=== PATIENT | female | born 1945 | race Caucasian/White ===

== ENCOUNTER → 2019-04-18 06:00 | Day surgery (SDC) | payer MEDICARE, OTHER, SELFPAY ==
--- NOTE | 2019-04-18 10:54 | XR_ITS ---
WS: [id number] Chest 2 views, 04/18/2019 Clinical Data: TOTAL HIP ARTHROPLASTY Comparison: None. Findings: No nodules, masses or effusions are seen. The heart is normal. The pulmonary vascularity is not increased. No pneumonia or pneumothorax is seen. The aortic arch and descending aorta are modera tely tortuous with minimal calcification. XR/XR chest 2V* [id number] Impression: Atherosclerosis.
--- NOTE | 2019-04-18 10:54 | ECG_ITS ---
Measurements Intervals [place] Rate: 67 P: 63 AK: 180 QRS: 58 QRSD: 89 T: 47 QT: 374 QTc: 395 SINUS RHYTHM No previous ECG available for comparison Electronically Signed On 04-18-2019 17:11:53 LASTER HAND by Malissa Torre M.D. [email or web address]
[2019-04-18 11:23] VITALS: BMI 32.4
--- NOTE | 2019-04-18 11:51 | ANES.PREANES ---
Pre-Anesthetic Assessment Pre-Anesthetic Assessment: Height/Weight: Height 1.65 m Weight 88.451 kg Proposed Procedure: Operation Date: 04/29/19 07:00 Proposed Procedures p Total Hip Arthroplasty(Left) - Juan Wheeler MD Social: Social History: No alcohol and No tobacco Exam: Pre-Anes Outpt Exam: alert, oriented x 3, clear to auscultation bilaterally and regular rate & rhythm Airway: Submandibular: WNL Cervical ROM: WNL MP: 2 Additional comments: teeth OK CV/HEM: CV/HEM: None reported : : None reported Hepatic: Hepatic: None reported GI: GI: None reported Metabolic: Metabolic: None reported Musc/skel: Musc/skel: OA/DJD Neuropsych: Neuropsych: None reported Anesthetic Plan: ASA status: II Anesthesia: Anesthesia Evaluation and General Risk of > 500 ml blood loss (7ml/kg in children): No PFSH Anesthesia PFSH: Medical History Hypertension (Acute) Surgical History H/O arthroscopy of right knee (Acute) H/O: (Acute) H/O: hysterectomy (Acute) History of bilateral carpal tunnel release (Acute) History of total right knee replacement (Acute) Data Anesthesia Cardiac Studies: No Data to Display
[2019-04-18 11:56] LABS: Basophils % 0.2 %; Eosinophils # 0.2 10^3/uL (0.0-0.8); Eosinophils % 1.9 %; Hematocrit 44.7 % (37.0-47.0); Hemoglobin 14.1 g/dL (11.5-15.3); Lymphocytes # 2.8 10^3/uL (0.8-4.8); Lymphocytes % 33.5 %; Mean Corpuscular HGB Conc 31.5 g/dL (30.0-36.0); Mean Corpuscular Hemoglobin 26.6 pg (28.0-34.0); Mean Corpuscular Volume 84.2 fL (81-99); Mean Platelet Volume 11.4 fL (7.4-10.4); Monocytes # 0.6 10^3/uL (0.2-0.9); Monocytes % 6.6 %; Neutrophils # 4.8 10^3/uL (1.8-7.7); Neutrophils % 57.1 %; Nucleated Red Blood Cells % 0 %; Platelet Count 177 10^3/cmm (130-400); Red Blood Count 5.31 10^6/uL (4.1-5.3); Red Cell Distribution Width 14.3 % (12.1-15.1); White Blood Count 8.3 10^3/uL (4.0-10.0)
[2019-04-18 11:58] LABS: Bilirubin Urine 1+ (NEGATIVE); Blood Urine Neg (Negative); Glucose Urine UA Norm (Normal); Ketones Urine 1+ (Negative); Leukocyte Esterase Urine 1+ (Negative); Nitrate Urine Positive (Negative); Protein Urine Trace (Negative); Urine Appearance Clear (CLEAR); Urine Color Yellow (Yellow); Urobilinogen Urine 1 mg/dL (Negative)
[2019-04-18 12:03] LABS: INR 0.96 (0.8-1.2)
[2019-04-18 12:08] LABS: Alanine Aminotransferase 20 U/L (0-33); Albumin Level 4.7 g/dL (3.5-5.2); Alkaline Phosphatase 105 IU/L (35-105); Anion Gap 16.8 (5-19); Aspartate Amino Transferase 21 U/L (0-32); Blood Urea Nitrogen 20 mg/dL (8-23); Calcium 10.1 mg/Dl (8.8-10.2); Carbon Dioxide 27 mmol/L (22-29); Chloride 99 mmol/L (98-107); Globulin 3.6 g/dL (1.3-4.6); Glucose 105 mg/dL (74-106); Potassium 3.8 mmol/L (3.5-5.1); Sodium 139 mmol/L (136-145); Total Bilirubin 0.5 mg/dL (0.15-1.2); Total Protein 8.3 g/dL (6.6-8.7)
[2019-04-18 12:15] LABS: Add Urine Culture? Yes; Bacteria Urine 2+; WBC Urine 40-55 /hpf (0-5)
== END ==
PROVIDERS: Family Provider Nurse Practitioner Family; Visit Provider Orthopaedic Surgery
DX: Z01.810 Encounter for preprocedural cardiovascular examination (principal); Z01.812 Encounter for preprocedural laboratory examination
CPT/HCPCS: 71046; 80053; 81001; 85025; 85610; 87077; 87086; 87186; 87641; 93005

== ENCOUNTER 2019-08-26 11:38 | Observation (INO) | payer MEDICARE, OTHER, SELFPAY ==
--- NOTE | 2019-08-20 10:53 | ANES.PREANE2 ---
Pre-Anesthetic Assessment Pre-Anesthetic Assessment: Height/Weight: Height 1.65 m Weight 86.183 kg Preop Diagnosis: Osteoarthritis left hip Proposed Procedure: Operation Date: 08/26/19 09:15 Proposed Procedures p Left Total Hip Arthroplasty, osteoarthritis of left hip 32505/M16.12(Left) - Juan Wheeler MD Social: Social History: No alcohol and No tobacco Exam: Pre-Anes Outpt Exam: alert, oriented x 3, clear to auscultation bilaterally and regular rate & rhythm Airway: Submandibular: WNL Cervical ROM: WNL MP: 2 History/ROS: No significant history except as noted CV/HEM: CV/HEM: HTN (white coat hypertension) : : None reported Hepatic: Hepatic: None reported Metabolic: Metabolic: None reported Musc/skel: Musc/skel: None reported Neuropsych: Neuropsych: None reported Anesthetic Plan: Anesthesia: General Risk of > 500 ml blood loss (7ml/kg in children): Yes, adequate IV access and fluids planned Data Anesthesia Cardiac Studies: No Data to Display
[2019-08-26] VITALS (21 sets, daily range): BP systolic 116–200; BP diastolic 64–95; PULSE 56–99; RESP 12–20; TEMP 36.3–36.9; O2SAT 92–100
--- NOTE | 2019-08-26 08:29 | P.ANESUD_ITS ---
Pre-Anesthetic Update Pre-Anesthetic Assessment: Date of Surgery/Procedure: 08/26/19 Preop Katie gnosis: Osteoarthritis left hip Proposed Procedure: Operation Date: 08/26/19 09:15 Proposed Procedures p Left Total Hip Arthroplasty, osteoarthritis of left hip 39601/M16.12(Left) - Juan Wheeler MD Any changes to Pre-Anesthetic Assessment?: No Last Intake: Intake Last Liquid Date 08/25/19 Last Liquid Time 21:00 Last Solid Date 08/25/19 Last Solid Time 21:00 Vitals: Temperature 98.4 F 08/26/19 08:15 Temperature Source Temporal Artery S can 08/26/19 08:15 Pulse Rate 70 08/26/19 08:15 Respiratory Rate 18 08/26/19 08:15 Blood Pressure 200/90 08/26/19 08:15 Blood Pressure Brenda n 126 08/26/19 08:15 Pulse Oximetry 98 08/26/19 08:15 Oxygen Delivery Me thod 08/26/19 08:15 Exam: Pre-Anes Outpt Exam: alert, oriented x 3, clear to auscultation bilaterally and regular rate & rhythm Cardiac Studies: No Data to Display
[2019-08-26] MEDS: sodium chloride 0.9% 1,000 ML 30 ML IV (08:55)
[2019-08-26 09:13] LABS: Basophils % 0.4 %; Eosinophils # 0.1 10^3/uL (0.0-0.8); Eosinophils % 1.7 %; Hematocrit 49.3 % (37.0-47.0); Hemoglobin 15.3 g/dL (11.5-15.3); Lymphocytes # 2.6 10^3/uL (0.8-4.8); Lymphocytes % 31.3 %; Mean Corpuscular Hemoglobin 26.4 pg (28.0-34.0); Mean Corpuscular Volume 85.1 fL (81-99); Mean Platelet Volume 12.1 fL (7.4-10.4); Monocytes # 0.5 10^3/uL (0.2-0.9); Neutrophils # 5.1 10^3/uL (1.8-7.7); Neutrophils % 60.1 %; Nucleated Red Blood Cells % 0 %; Platelet Count 202 10^3/cmm (130-400); Red Blood Count 5.79 10^6/uL (4.1-5.3); Red Cell Distribution Width 14.1 % (12.1-15.1); White Blood Count 8.4 10^3/uL (4.0-10.0)
--- NOTE | 2019-08-26 09:25 | W.PM.OPSUD ---
Surgery/Procedure H&P Update DATE OF PROCEDURE: August 26, 2019 DATE H&P PERFORMED: 08/20/19 H&P UPDATE INFORMATION: I have reviewed H&P completed within last 30 days PREOP DIAGNOSIS: Osteoarthritis left hip PLANNED PROCEDURE: Operation Date: 08/26/19 09:15 Proposed Procedures p Left Total Hip Arthroplasty, osteoarthritis of left hip 68688/M16.12(Left) - Juan Wheeler MD
[2019-08-26] MEDS: tranexamic acid 1,000 mg/10mL SDV 1000 MG IRRIGATION (10:54)
--- NOTE | 2019-08-26 11:14 | SUR.OPER ---
1110 - Attemped to update michaelle Ganga. unable to reach him on his cell phone at this time.
--- NOTE | 2019-08-26 11:41 | XR_ITS ---
WS: [id number] LEFT hip single view. HISTORY: LEFT hip arthroplasty. COMPARISON: 09/28/2018. Single view of the LEFT hip arthroplasty has been performed. Arthroplasty components are in good posi tion alignment. Postoperative changes in the soft tissues. XR/XR hip LT 1V wo/w pel [id number] IMPRESSION: Satisfactory LEFT hip arthroplasty radiograph.
--- NOTE | 2019-08-26 11:42 | PM.OP ---
Operative Report Date of procedure: August 26, 2019 Pre-op Diagnosis: Osteoarthritis left hip Post-op diagnosis: same Post-op Findings: Same Procedure Done: Left total hip Sanchez Implants: 1) Arturo 50 mm ADM acetabular shell 2) Size 7 [place] 132 degree neck angle SecureFit Max stem 3} 28 mm ceramic femoral head 4} Restorationa ADM X3 insert Pathology: none sent Surgeon: Juan Wheeler Anesthesia: General Estimated blood loss (mL): 200 Findings: Patient had sclerosis of her left femoral head and superior acetabulum Condition: stable Procedure: The patient was taken to the operating room and anesthesia provided by the anesthesia service. The patient was placed in the lateral position on a beanbag. A timeout was performed. The patient was draped in the usual fashion. A 15 cm long incision was made beginning just proximal to the greater trochanter and extending posteriorly to a point just distal to the trochanter on the posterior border of the trochanter. Dissection was carried down with electrocautery through the subcutaneous fat to the fascia enedina which was divided proximally and distally with curved scissors. The anterior two thirds of the gluteus medius and minimus were elevated off the hip with electrocautery. The capsule was divided in a H-like fashion. The hip was dislocated and a neck cut made just above the level of the lesser trochanter. Exposure of the acetabulum was facilitated with the acetabular retractors. Remnants of labrum and peripheral osteophytes were removed with electrocautery and a rongeur. A reamer 2 mm under the size the femoral head was utilized to ream medially to the base of the palm and are. Reaming was then increased in 1 mm intervals until a healthy rim a trabecular bone was encountered. A trial ADM cup was placed and its position marked with electrocautery In the acetabulum. A final was press-fit into place. Attention was then focused on the femur. Sequential reaming was done under power until cortical chatter was encountered. Broaching was then accomplished until a stable broach size was obtained. A trial reduction with the head and neck provided excellent stability. The wound was irrigated with saline and antibiotic solution. The final Arturo SecureFit Max stem was press-fit into place. The femoral head was placed and the hip was reduced. The hip was brought through range of motion and found to be free of impingement and stable. The anterior capsule was reapproximated with 1 Ethibond. The gluteus medius and minimus were repaired through bone with 5 Ethibond and reinforced with 1 Ethibond. The fascial enedina was closed with 1 Ethibond. The subcutaneous tissue closed with 2-0 Vicryl. The skin was closed with skin cheri. A sterile dressing was applied. The patient was taken to the recovery room in an abduction pillow in stable condition.
[2019-08-26] MEDS: morphine 4 mg/mL SDV 1 mL 2 MG IVP (11:45)
--- NOTE | 2019-08-26 12:37 | SUR.PHASEI ---
1216 X RAY DONE PT RESTING QUIETLY, REPORT CALLED TO FLOOR LT HIP DRESSING D/I FIRST ICE IN PLACE PT TO FLOOR PER BED 1225 PT TO ROOM ALERT TALKATIVE WITH FLOOR NURSE, PT NOW C/O OF HIP PAIN WORSENING, BP 165/76, HR 63, RESP 18 SATS ON 3LNC 99%
[2019-08-26] MEDS: CELEcoxib 200 mg Capsule PO (13:10)
[2019-08-26] MEDS: sodium chloride 0.9% 1,000 ML 100 ML IV ×2 (13:10→21:32)
[2019-08-26] MEDS: chlorhexidine gluconate 0.12% Btl 473 mL 30 ML MUCOUS MEM ×3 (13:11→21:32)
[2019-08-26] MEDS: oxyCODONE 5 mg IR Tab/Cap 10 MG PO ×2 (14:30→21:32)
[2019-08-26] MEDS: mupirocin oint 22 gm 1 APPLIC NASAL (17:51)
[2019-08-26] MEDS: sennosides-docusate Tablet 2 TAB PO (17:52)
[2019-08-26] MEDS: iron polysaccharide complex 150 mg Capsule PO (17:52)
[2019-08-26] MEDS: calcium carbonate 500 mg Chew Tablet 1000 MG PO (17:52)
[2019-08-27] VITALS (7 sets, daily range): BP systolic 120–167; BP diastolic 71–78; PULSE 70–81; RESP 18–20; TEMP 36.4–36.9; O2SAT 96–97
[2019-08-27] MEDS: CELEcoxib 200 mg Capsule PO ×2 (01:03→13:23)
[2019-08-27 05:12] LABS: Hematocrit 40.1 % (37.0-47.0)
[2019-08-27] MEDS: oxyCODONE 5 mg IR Tab/Cap 10 MG PO ×2 (05:23→13:23)
--- NOTE | 2019-08-27 07:49 | PM.DCS ---
Discharge Providers Date of Admission: 08/26/19 11:38 Date of Discharge: August 27, 2019 Attending Provider at Admission: Juan Wheeler MD Attending Provider at Discharge: Juan Wheeler MD Primary Care Provider: Latoya Jose Reason for Visit Reason for Visit: Reason For Visit: osteroarthritis of left hip Hospital Course Hospital Course: The patient was admitted for elective left total hip arthroplasty. Postoperatively she did well. Her pain was controlled with oral medications. She was mobilized with therapy and by the first postoperative day was independent with her walker and thought stable for discharge. Physical Exam Narrative: EXAM NARRATIVE: On 08/27/2019 her dressing was clean. She had minimal swelling in her left thigh. Urinary Catheter Management^: Leigh: Cath Placed During This Visit: yes, but has since been removed by the nurse Reason for Continuing Indwelling Catheter: Chronic Indwelling Urinary Catheter on Admission Urinary Catheter Date of Insertion: 08/26/19 Urinary Catheter Time of Insertion: 10:00 Date Urinary Catheter Removed: 08/27/19 Time Urinary Catheter Discontinued: 07:17 Discharge Data Data Completed and Pending: Completed Studies During Hospitalization Category Date Time Status XR hip LT 1V wo/[place] pel [id number] Routine Exams 08/26/19 11:41 Completed Labs from last 24 hours 08/27/19 08/26/19 08/26/19 04:25 08:25 08:25 WBC 8.4 RBC 5.79 H Hgb 15.3 Hct 40.1 49.3 H MCV 85.1 MCH 26.4 L MCHC 31.0 RDW 14.1 Plt Count 202 MPV 12.1 H Neut % (Auto) 60.1 Lymph % (Auto) 31.3 [place] % (Auto) 6.0 Eos % (Auto) 1.7 Baso % (Auto) 0.4 Neut # (Auto) 5.1 Lymph # (Auto) 2.6 [place] # (Auto) 0.5 Eos # (Auto) 0.1 Baso # (Auto) 0.0 Nucleated RBC % (a uto) 0 Nucleated RBCs # 0.0 Blood Type O Negative Rho(D) Type Negaive Antibody Screen Negative Vitals: Last Vital Signs Temp 97.8 F 08/27/19 04:00 Pulse 81 08/27/19 04:00 Resp 18 08/27/19 05:23 BP 167/77 08/27/19 04:00 Pulse Ox 97 08/27/19 05:23 Discharge Plan Discharge Patient Disposition: Home, Self-Care Condition: Stable Prescriptions: New oxycodone 5 mg Tablet 10 mg PO Q4H PRN (Reason: Severe Pain) Qty: 30 RF: 0 aspirin 325 mg Tablet,Delayed Release (Dr/Ec) 325 mg PO DAILY Qty: 30 RF: 0 celecoxib 200 mg Capsule 200 mg PO Q12H Qty: 15 RF: 0 Discontinued hydrocodone-acetaminophen 7.5-325 mg tablet 7.5 tab PO DAILY RF: 0 Discharge Orders: Discharge Order (Routine); Ordered 08/27/19 Ordered By: Juan Wheeler Other Ambulatory Orders: DME: Walker (Order) Location: None Selected Ordered By: Juan Wheeler Referrals: Juan Wheeler MD [Physician] - 09/10/19 3:45 pm Discharge Diet: Advance as tolerated Discharge Activity: Limit activity as instructed Activity Restrictions/Additional Instructions: May shower once incisions completely free of drainage. Discontinue right hip dressing in 24-48 hours. Replaced dressings as needed. Take Celebrex twice a day for the next 15 days for pain , discontinue other anti-inflammatories zehra oxycodone for breakthrough pain. Exercises per physical therapy. May discontinue abduction pillow. Keep 2 pillows between legs at night Discharge Attestations Time Spent in Discharge Care*: other Quality Metrics Clinical Quality Measures During this hospital stay, did patient experience: None Coding Level of Care Code Acute Medical Technician Assistant for Gladis Torres
[2019-08-27] MEDS: multivitamin therapeutic Tablet 1 TAB PO (08:51)
[2019-08-27] MEDS: calcium carbonate 500 mg Chew Tablet 1000 MG PO (08:51)
[2019-08-27] MEDS: aspirin 325 mg EC Tablet PO (08:52)
[2019-08-27] MEDS: sennosides-docusate Tablet 2 TAB PO (08:52)
[2019-08-27] MEDS: cholecalciferol (vitamin D3) 1,000 unit Tablet 1000 UNIT PO (08:52)
[2019-08-27] MEDS: iron polysaccharide complex 150 mg Capsule PO (08:52)
[2019-08-27] MEDS: chlorhexidine gluconate 0.12% Btl 473 mL 30 ML MUCOUS MEM (08:53)
[2019-08-27] MEDS: mupirocin oint 22 gm 1 APPLIC NASAL (08:54)
--- NOTE | 2019-08-27 11:49 | PC.CHAP ---
Pastoral Care Encounter/Spiritual Assessment Type of Contact [] Declined leather craftsman visit [] Patient/Family/Request visit [] Outpatient visit [] Follow-up visit [] Physician referral [] Code/Alert [x] Routine visit [] Staff referral [] Actively dying [] Patient sleeping [] Family support [] [] Out of room [] Palliative care [] [x] Receiving care in room [] Pre-surgical visit [] Trauma [] Long length of stay [] ICU visit [] Other: Relational/Emotional Strength [x] Patient feels connected with others/family/visitors/staff [] Distress [] Loneliness/isolation [] Abandonment Spirituality of Patient [x] Person of Hailee [] Attends Restorationist of their Hailee [x] Believes in Prayer [] Reads Bible or Confucianism materials [] There are Spiritual issues to be addressed Steep Tender Interventions [x] Prayer [x] Active listening [x] Non-anxious presence [x] Spiritual/emotional support [] Crisis/trauma care [x] Spiritual counseling [] Bereavement support [] Provided bereavement packet [] Provided Bible/devotional materials [] Provided toy/stuffed animal, coloring book to patient or family member [] Provided Communion [] Anointing/[place] [] Salvation [x] Completed spiritual assessment [] Other: Impact on Illness or Injury [] Angry [] Fearful [] Anxious [] Often cries [] Exhaustion [x] Unable to work [] Unable to attend yarsanism [] Unable to walk/stand [] Unable to read [] Unable to drive [] Unable to eat/drink [] Unable to sleep [] Unable to be with family [] Patient intubated [] Other: Summary osteroarthritis on lelt hip, good attitude, going home today Time spent with patient 10 mins
--- NOTE | 2019-08-27 13:24 | PC.NURSE ---
per Dr Wheeler, dressing is clean and dry. no need to change dressing at this time.
--- NOTE | 2019-08-27 13:46 | PC.SOCIAL ---
Patient received [employer] Recipient letter for the [employer] model for Medicare. Original signed and placed in the chart.
== END 2019-08-27 13:51 | disposition home or self-care (01) ==
LOC: MEDSURG 11:41 → OR 11:41
PROVIDERS: Admitting Provider Orthopaedic Surgery; Family Provider Nurse Practitioner Family; PCP Nurse Practitioner Family; Visit Provider Orthopaedic Surgery
PROC: (CPT 27130; principal; 2019-08-26 09:05)
DX: M16.12 Unilateral primary osteoarthritis, left hip (principal); I10 Essential (primary) hypertension
CPT/HCPCS: 27130; 12345; 36415; 51702; 73501; 85014; 85025; 86850; 86900; 96361; 96365; 96366; 97110; 97116; 97161; 97166; 97530; C1776; G0378; J0690; J1100; J1580; J2001; J2270; J2405; J2704; J2710; J3010; J3490; J7030

== ENCOUNTER 2019-09-19 06:00 | Outpatient (RCR) | payer MEDICARE, OTHER, SELFPAY | END 2019-10-15 23:59 | disposition home or self-care (01) | LOC: MPT 06:00 | PROVIDERS: PCP Nurse Practitioner Family; Visit Provider Orthopaedic Surgery | DX: Z47.1 Aftercare following joint replacement surgery (principal); Z96.642 Presence of left artificial hip joint | CPT/HCPCS: 97110; 97116; 97140; 97161; 97530 ==

== ENCOUNTER → 2019-10-08 14:34 | Outpatient (BNVA) | payer MEDICARE, OTHER, SELFPAY | PROVIDERS: PCP Nurse Practitioner Family; Visit Provider Orthopaedic Surgery | DX: Z96.642 Presence of left artificial hip joint (principal) | CPT/HCPCS: 73502 ==

== ENCOUNTER 2019-10-16 03:12 | Outpatient (RCR) | payer MEDICARE, OTHER, SELFPAY | END 2019-11-15 23:59 | disposition home or self-care (01) | LOC: MPT 03:12 | PROVIDERS: PCP Nurse Practitioner Family; Visit Provider Orthopaedic Surgery | DX: Z47.1 Aftercare following joint replacement surgery (principal); Z96.642 Presence of left artificial hip joint | CPT/HCPCS: 97110; 97116 ==

== ENCOUNTER → 2019-12-31 14:41 | Outpatient (BNVA) | payer MEDICARE, OTHER, SELFPAY | PROVIDERS: PCP Nurse Practitioner Family; Visit Provider Nurse Practitioner Family | DX: M25.571 Pain in right ankle and joints of right foot (principal); M19.071 Primary osteoarthritis, right ankle and foot | CPT/HCPCS: 73610 ==

== ENCOUNTER → 2020-02-24 10:06 | Outpatient (BNVA) | payer MEDICARE, OTHER, SELFPAY | PROVIDERS: PCP Nurse Practitioner Family; Referring Provider Nurse Practitioner Family; Visit Provider Nurse Practitioner Family | DX: M25.511 Pain in right shoulder (principal) | CPT/HCPCS: 73030 ==

== ENCOUNTER 2020-06-30 10:55 | Outpatient (CLI) | payer MEDICARE, OTHER, SELFPAY ==
--- NOTE | 2020-06-30 11:45 | MR_ITS ---
WS: [id number] MRI RIGHT SHOULDER NONCONTRAST TECHNIQUE: Sagittal T2, coronal T1, T2 and proton density imaging. Axial gradient PDE imaging. CLINICAL INFORMATION: M67.911 - Unspecified disorder of synovium and tendon, right shoulder COMPARISON: None. FINDINGS: Prior postoperative changes resection of the distal clavicle. Susceptibly artifact overlying the AC j oint degrades some images. Advanced narrowing glenohumeral joint. Chronic thinning of the supraspinat us and infraspinatus. Marked chronic thinning of the supraspinatus distally. Evidence of prior rotato r cuff repair. Tendinopathy involving the distal supraspinatus. No high-grade recurrent tear. Chronic thinning of the infraspinatus which appears intact. Normal teres minor. Chronic thinning of the subs capularis with a small intrasubstance tear. Atrophic biceps tendon medially subluxed within the bicipital groove. Intra-articular biceps tendon a ppears intact. Degenerative fraying of the glenoid labrum which appears grossly intact. Subchondral c ystic change involving the greater tuberosity. MR/MR shoulder RT wo con* [id number] IMPRESSION: 1. Resection of the distal clavicle with prior rotator cuff repair. Susceptibi lity artifact degrades images. 2. Chronic thinning of the distal supraspinatus with tendinopathy. No recurren t tear. 3. Small intrasubstance tear with chronic thinning of the subscapularis. 4. Tiny biceps tendon in the bicipital groove with medial subluxation. Intra-a rticular biceps tendon appears intact. 5. Advanced degenerative narrowing, humeral joint with subchondral cystic burgess ge involving the greater tuberosity. 6. Glenoid labrum appears grossly intact.
== END 2020-06-30 10:56 | disposition home or self-care (01) ==
LOC: RADSHAW 10:57
PROVIDERS: PCP Nurse Practitioner Family; Visit Provider Orthopaedic Surgery
DX: M67.911 Unspecified disorder of synovium and tendon, right shoulder (principal); S46.811A Strain of other muscles, fascia and tendons at shoulder and upper arm level, right arm, initial encounter; X58.XXXA Exposure to other specified factors, initial encounter
CPT/HCPCS: 73221

== ENCOUNTER → 2020-11-26 12:07 | Outpatient (BNVA) | payer MEDICARE, OTHER, SELFPAY | PROVIDERS: PCP Nurse Practitioner Family; Visit Provider Nurse Practitioner Family | DX: R07.81 Pleurodynia (principal) | CPT/HCPCS: 71046 ==

== ENCOUNTER → 2021-07-28 10:25 | Outpatient (BNVA) | payer MEDICARE, OTHER, SELFPAY | PROVIDERS: PCP Nurse Practitioner Family; Visit Provider Podiatrist Foot & Ankle Surgery | DX: M19.071 Primary osteoarthritis, right ankle and foot (principal) | CPT/HCPCS: 73630; 99214 ==

== ENCOUNTER → 2021-08-25 08:13 | Outpatient (BNVA) | payer MEDICARE, OTHER, SELFPAY | PROVIDERS: PCP Nurse Practitioner Family; Visit Provider Podiatrist Foot & Ankle Surgery | DX: M19.071 Primary osteoarthritis, right ankle and foot (principal) | CPT/HCPCS: 99213 ==

== ENCOUNTER 2021-08-31 06:00 | Outpatient (RCR) | payer MEDICARE, OTHER, SELFPAY | END 2021-09-14 23:59 | disposition home or self-care (01) | LOC: MPT 06:00 | PROVIDERS: PCP Nurse Practitioner Family; Referring Provider Nurse Practitioner Family; Visit Provider Nurse Practitioner Family | DX: Z47.1 Aftercare following joint replacement surgery (principal); Z96.642 Presence of left artificial hip joint | CPT/HCPCS: 97110; 97162 ==

== ENCOUNTER → 2021-09-08 08:12 | Outpatient (BNVA) | payer MEDICARE, OTHER, SELFPAY | PROVIDERS: PCP Nurse Practitioner Family; Visit Provider Orthopaedic Surgery | DX: M19.011 Primary osteoarthritis, right shoulder (principal); M67.911 Unspecified disorder of synovium and tendon, right shoulder | CPT/HCPCS: 20610; 99212; 99213; J0702; J3490 ==

== ENCOUNTER 2021-09-15 06:00 | Outpatient (RCR) | payer MEDICARE, OTHER, SELFPAY | END 2021-10-14 23:59 | disposition home or self-care (01) | LOC: MPT 06:00 | PROVIDERS: PCP Nurse Practitioner Family; Referring Provider Nurse Practitioner Family; Visit Provider Nurse Practitioner Family | DX: Z47.1 Aftercare following joint replacement surgery (principal); Z96.642 Presence of left artificial hip joint | CPT/HCPCS: 97110; G0283 ==

== ENCOUNTER → 2021-09-21 13:09 | Outpatient (BNVA) | payer MEDICARE, OTHER, SELFPAY | PROVIDERS: PCP Nurse Practitioner Family; Visit Provider Podiatrist Foot & Ankle Surgery | DX: M79.671 Pain in right foot (principal); M19.071 Primary osteoarthritis, right ankle and foot | CPT/HCPCS: 99214 ==

== ENCOUNTER 2021-10-08 05:35 | Day surgery (SDC) | payer MEDICARE, OTHER, SELFPAY ==
[2021-10-07 13:50] VITALS: BMI 28.4
[2021-10-08] VITALS (13 sets, daily range): BP systolic 147–196; BP diastolic 79–97; PULSE 67–91; RESP 18; TEMP 36.2–36.7; O2SAT 91–98
--- NOTE | 2021-10-08 | SCC_ITS ---
Procedure done: Right second tarsometatarsal joint arthrodesis. CPT code 85209 10 seconds of fluoroscopic guidance, for a cumulative dose of 0.2 mGy, was provided to Dr. Zhou by the radiology department. C-arm images of the RIGHT foot were saved for the patient's permanent record. [facility]
--- NOTE | 2021-10-08 06:00 | W.PM.OPSUD ---
Surgery/Procedure H&P Update DATE OF PROCEDURE: October 08, 2021 DATE H&P PERFORMED: 10/08/21 CHANGES TO PREVIOUS DOCUMENTATION: none PREOP DIAGNOSIS: Posttraumatic arthritis right midfoot PLANNED PROCEDURE: Operation Date: 10/08/21 07:40 Proposed Procedures p Second and third tarsometatarsal joint arthrodesis 84749 and 85228 M79.671 and 736.7(Right) - Ganga Zhou DPM s Gastrocnemius Recession(Right) - Ganga Zhou DPM
--- NOTE | 2021-10-08 06:01 | PM.OPSURHP ---
Providers/Chief Complaint Primary Care Provider: Latoya Garcia History of Present Illness Elio Dickey is a 76 year old female presents with posttraumatic arthritis as a result of a Lisfranc injury right foot. Has had a progression of pain that affects her overall quality of everyday life. She has failed to respond to meloxicam, prednisone taper, Voltaren gel, supportive shoes, stretching and activity modifications. Still has pain with and without activities and like to discuss surgical intervention. Patient denies any subjective nausea, vomiting, fever, chills, shortness of breath or chest pain. Review of Systems General: Reports: 10 or more systems reviewed and unremarkable except in HPI and below Const: Denies: fever(s) or chills Eyes: Denies: change in vision Card: Denies: chest pain or palpitations Resp: Denies: dyspnea or productive cough GI: Denies: abdominal pain, nausea or vomiting : Denies: flank pain Musc: Reports: extremity pain, joint pain, joint stiffness, limited range of motion and deformity Skin/Breast: Reports: skin tenderness; Denies: rash Neuro: Reports: difficulty walking; Denies: numbness in extremities, sensory changes or frequent falls Psych: Denies: suicidal ideation Davdi/Lymph: Denies: easy bruising Medications/Allergies Home Medications Medication Instructions Recorded Confirmed Last Taken Type lisinopril 10 mg tablet 10 mg PO DAILY 03/03/21 10/08/21 10/07/21 History Crutches #1 ea 10/08/21 Unknown Rx aspirin 81 mg chewable tablet 1 tab PO DAILY 45 Days #45 tab 10/08/21 Unknown Rx hydrocodone 10 mg-acetaminophen 1 tab PO Q6H 7 Days #28 tab 10/08/21 Unknown Rx 325 mg tablet Allergies Allergy/AdvReac Type Severity Reaction Status Date / Time meperidine [From Demerol] Allergy ADR-Halluci Verified 09/08/21 08:15 [place] [facility] PFSH: Medical History Hypertension Primary osteoarthritis of left hip Surgical History H/O arthroscopy of right knee H/O: H/O: hysterectomy History of bilateral carpal tunnel release History of total right knee replacement Status post total hip replacement, left Social History Smoking and tobacco status: never smoked Alcohol intake: never Vital Signs Weight: Weight last 48 hrs Weight 176 lb Physical Exam Narrative: EXAM NARRATIVE: Patient is alert and oriented ?3 and in no acute distress.? The following is a focused bilateral lower extremity exam. VASCULAR: Dorsalis pedis and posterior tibial arteries palpable +2.? Capillary refill time less than 3 seconds to the distal hallux bilaterally. Calf is supple and nontender proximally and distally.? No pedal edema appreciated.? Pedal hair growth present. NEUROLOGICAL: Epicritic and protopathic sensations grossly intact to the lower extremities.? +2 Achilles tendon reflex noted bilaterally.? Negative Tinel sign upon percussion of lower extremity nerves. DERMATOLOGICAL: Lower extremity skin is well-hydrated, normal texture and turgor.? There are no open sores or lesions noted to the lower extremities.? No erythema or ecchymosis present to the bilateral legs and feet.? Pincer nail deformity toenails 1 through 5 right foot. MUSCULOSKELETAL: Exquisite tenderness to palpation at the right dorsal midfoot at the second and third tarsometatarsal joints with osseous prominence dorsally.? No pain to palpation at the right peroneal tendons.? No pain elicited with dorsiflexion and eversion of the right foot along the course of the peroneals, no subluxation of the peroneal groove appreciated.? No palpable mass along the course of the plantar fascia appreciated.? No pain to palpation along the course of the bilateral Achilles tendon.? No pain to palpation along the course posterior tibial tendon or peroneal tendons.? No pain with [id number] compression of calcaneus, bilaterally.? Muscle strength is 5/5 in all 3 cardinal planes pain-free without guarding to the foot and ankle, bilaterally. CARDIOVASCULAR: S1, S2, normal rate, normal rhythm. Dorsalis pedis and posterior tibial arteries palpable. LUNGS: Clear to auscltation, no use of acessory muscles, no crackles or wheezes. Data : 10/08/21 06:15 A&P Assessment and plan (1) Pain, foot, right, chronic: Status: Acute (2) Osteoarthritis of midtarsal joint of right foot: Status: Acute (3) Lisfranc dislocation: Status: Acute Qualifiers: Encounter type: sequela Laterality: right Qualified Code(s): S93.324S - Dislocation of tarsometatarsal joint of right foot, sequela Plan Pleasant 76-year-old female with increased pain to the right foot affecting her quality of everyday living. X-rays taken and reviewed shows arthrosis of the second and third tarsometatarsal joints of the right foot with impressive osteophyte on the lateral view dorsally.? There is subchondral sclerosis and joint space narrowing at these 2 joints.? Very mild bunion, tibial sesamoid position #2 on the right foot. Arthritic changes are potentially a sequela of the old Lisfranc injury. She has failed oral and topical NSAIDs, has trialed meloxicam, naproxen and ibuprofen without relief. Also failed to respond to topical Voltaren gel and lidocaine gel, failed orthotics and supportive shoes, stretching and activity modifications. She would like to discuss surgical intervention. Recommended second and third tarsometatarsal joint arthrodesis with possible calcaneal autograft risks include but are not limited to pain, bleeding, numbness, infection, hardware failure, delayed union, malunion, nonunion, failure to alleviate pain, altered mechanics, transfer pressure and transfer lesions, chronic numbness, paresthesias and need for further surgical intervention. Patient is agreeable wishes to proceed. Right second and third tarsometatarsal joint arthrodesis, outpatient, general anesthesia, 10/08/2021, gurney, supine, 90 minutes. Coding Level of Care Code Acute Global Regulatory Lead for Gladis Torres Diagnoses Pain, foot, right, chronic M79.671; G89.29 Osteoarthritis of midtarsal joint of right foot M19.071 Lisfranc dislocation S93.324S Encounter type: sequela Laterality: right
[2021-10-08] MEDS: CELEcoxib 200 mg Capsule 400 MG PO (06:17)
[2021-10-08] MEDS: gabapentin 300 mg Capsule PO (06:17)
[2021-10-08] MEDS: sodium chloride 0.9% 1,000 ML 30 ML IV (06:20)
--- NOTE | 2021-10-08 06:24 | XR_ITS ---
WS: [id number] Exam: XR foot RT min 3V* [id number] Date/Time of Exam: 10/08/2021 6:24 AM Reason For Exam: Postop There is internal fixation of the proximal second metatarsal and second cuneiform bone with dorsal pl ate and screw fixation. Alignment appears satisfactory. Postop changes seen in the adjacent soft tiss ues. Calcaneal spurs. Degenerative changes of the IP joints and midfoot joints. XR/XR foot RT min 3V* [id number] IMPRESSION: 1. Internal fixation involving the second metatarsal cuneiform joint.
[2021-10-08 06:53] LABS: Blood Urea Nitrogen 17 mg/dL (8-23); Calcium 9.3 mg/dL (8.5-10.5); Carbon Dioxide 21 mmol/L (22-29); Chloride 104 mmol/L (98-107); Glucose 90 mg/dL (65-115); Osmolality Calculated 287 mOsm/kg (285-295); Sodium 138 mmol/L (136-145)
--- NOTE | 2021-10-08 07:12 | P.ANESASSM_ITS ---
Pre-Anesthetic Assessment Height/Weight: Height 1.68 m Weight 79.832 kg Temp Pulse Resp BP Pulse Ox 98.0 F 67 18 188/86 98 10/08/21 06:02 10/08/21 06:02 10/08/21 06:02 10/08/21 06:02 10/08/21 06:02 Preop Diagnosis: Posttraumatic arthritis right midfoot Operation Date: 10/08/21 07:40 Proposed Procedures p Second and third tarsometatarsal joint arthrodesis 23910 and 21368 M79.671 and 736.7(Right) - Ganga Zhou DPM s Gastrocnemius Recession(Right) - Ganga Zhou DPM Familial anesthetic complications: None Was Beta Jean taken within 24 hours: N/A Was Clonidine taken within 24 hours: N/A Last intake: Intake Last Liquid Date 10/07/21 Last Liquid Time 22:30 Last Solid Date 10/07/21 Last Solid Time 22:00 Social No alcohol and No tobacco Exam alert, oriented x 3, clear to auscultation bilaterally and regular rate & rhythm Airway Submandibular: within normal limits Cervical ROM: within normal limits Mallampati: Class I Dentition: full History/ROS No significant complaints Pulmonary None reported CV/HEM Hypertension None reported Hepatic None reported GI None reported Metabolic None reported Musc/skel Osteoarthritis/DJD Neuropsych None reported Anesthetic Plan ASA status: 2 Anesthesia: Anesthesia Evaluation, General and Regional (specify below) (PRN post op block at surgeons request ) Other: We discussed risk and benefits of general anesthesia including PONV, sore throat (sometimes severe), corneal abrasion, positioning and peripheral nerve injuries, life threatening allergic reaction, post operative ICU admission requiring prolonged intubation, stroke, heart attack, , and rare incidences of recall. Patient consents to proceed with general anesthesia. We discussed risk and benefits of nerve block for post op pain control including management of pain and titration of pain medications as signs/symptoms of nerve block wearing off begin to appear and/or prior bed. We discussed risk of failed nerve block, vascular injury or other vital structure injury, abscess/infection, LAST, and nerve injury. Patient consents to post op block if needed. 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 After listening carefully and emphatically to this thrilling story of love and compassion the patient thanked me for listening and I expressed my appreciation for her sharing and how happy I was that they were united to comfort each other after so many years of knowing each other. Medications/Allergies Home Medications Medication Instructions Recorded Confirmed Last Taken Type lisinopril 10 mg tablet 10 mg PO DAILY 03/03/21 10/08/21 10/07/21 History aspirin 81 mg chewable tablet 1 tab PO DAILY 45 Days #45 tab 10/08/21 Unknown Rx hydrocodone 10 mg-acetaminophen 1 tab PO Q6H 7 Days #28 tab 10/08/21 Unknown Rx 325 mg tablet Allergies Allergy/AdvReac Type Severity Reaction Status Date / Time meperidine [From Demerol] Allergy ADR-Halluci Verified 09/08/21 08:15 nating Current Medications Generic Name Dose Route Start Last Admin Trade Name Freq PRN Reason Stop Dose Admin Sodium Chloride 1,000 mls @ 30 mls/hr 10/08/21 06:00 10/08/21 06:20 Sodium Chloride 0.9% IV 10/09/21 05:59 30 mls/hr .Q24H DANIEL Administration PFSH Anesthesia Medical History Hypertension Primary osteoarthritis of left hip Surgical History H/O arthroscopy of right knee H/O: H/O: hysterectomy History of bilateral carpal tunnel release 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
--- NOTE | 2021-10-08 09:02 | P.OP_ITS ---
Operative Report Date of procedure: October 08, 2021 Pre-op diagnosis: Posttraumatic arthritis right midfoot Post-op diagnosis: Same Post-op findings: Significant arthrosis of the right second tarsometatarsal joint. Right third tarsometatarsal joint showed minimal degenerative changes. Procedure done: Right second tarsometatarsal joint arthrodesis. CPT code 26662 Implants: [place] 28 clover plate with locking and nonlocking screws, 3-0 Vicryl, 4-0 Vicryl, 4-0 nylon, Exparel 10 mL expanded with 10 mL of sterile saline, 30 cc of 0.25% Marcaine plain. Specimens removed/disposition: None Pathology: None Surgeon: Ganga Zhou D.P.M. Architect Internship: Jose Estimated blood loss: 5 45 minutes IV fluids: None Urine output: None Complications: None Findings: Arthrosis at the right second tarsometatarsal joint, minimal degenerative changes at the right third tarsometatarsal joint. Brief History: Pleasant 76-year-old female with increased pain to the right foot affecting her quality of everyday living. ? X-rays taken and reviewed shows arthrosis of the second and third tarsometatarsal joints of the right foot with impressive osteophyte on the lateral view dorsally.? There is subchondral sclerosis and joint space narrowing at these 2 joints.? Very mild bunion, tibial sesamoid position #2 on the right foot.? Arthritic changes are potentially a sequela of the old Lisfranc injury.? She has failed oral and topical NSAIDs, has trialed meloxicam, naproxen and ibuprofen without relief.? Also failed to respond to topical Voltaren gel and lidocaine gel, failed orthotics and supportive shoes, stretching and activity modifications.? She would like to discuss surgical intervention.? Recommended second and third tarsometatarsal joint arthrodesis with possible calcaneal autograft risks include but are not limited to pain, bleeding, numbness, infection, hardware failure, delayed union, malunion, nonunion, failure to alleviate pain, altered mechanics, transfer pressure and transfer lesions, chronic numbness, paresthesias and need for further surgical intervention.? Patient is agreeable wishes to proceed. Procedure: Under mild sedation the patient was brought to the operating room and remained on the gurney in supine position. A timeout was performed. Anesthesia was then administered by the anesthesia service. Local anesthesia injected by myself consisting of a posterior tibial nerve block as well as proximal field block across the anterior ankle of the right lower extremity, this was accomplished with a total of 30 cc of 0.25% Marcaine plain. Well-padded pneumatic tourniquet applied to the right ankle. The right lower extremity was then scrubbed, prepped and draped utilizing normal aseptic technique. Right foot was exanguinated with an Esmarch bandage and the tourniquet inflated to 250 mmHg. Tissue was directed to the dorsal aspect of the right midfoot where a linear longitudinal incision was made over the second tarsometatarsal joint with a #15 blade. Dissection was carried down through subcutaneous tissue to the layer of periosteum utilizing a combination of blunt and sharp technique. Care was taken to retract and preserve neurovascular and tendinous structures. All bleeders were ligated and cauterized as necessary. Periosteal incision was made and a significant bony hypertrophy dorsal exostosis of the second tarsometatarsal joint was transected utilizing osteotome and mallet. The second tarsometatarsal joint was degenerative, hypermobility appreciated intraoperatively. Second tarsometatarsal joint was then resected of remaining cartilaginous surface and flushed with saline solution followed by subchondral drilling and fixation utilizing standard AO technique. This was fixated utilizing a [place] 28 clover plate with excellent bony apposition and compression noted, DBM 1 cc packed to fill all voids at the second tarsometatarsal joint. Combination of locking and nonlocking 2.7 millimeter screws provided by [place] 28 with excellent bony apposition and compression without violating adjacent joints this was confirmed with all 3 views intraoperative fluoroscopy was employed. Thorough inspection of the second tarsometatarsal joint was performed intraoperatively and noted to have stability at the joint, no hypermobility appreciated on range of motion and loading, no degenerative changes or significant dorsal exostosis appreciated. I determined not to fuse the third tarsometatarsal joint given the above intraoperative findings. The incision site was flushed with copious amounts of sterile saline solution. Periosteum was reapproximated utilizing 3-0 Vicryl. Subcutaneous tissue closed with 4-0 Vicryl and skin with 4-0 nylon. Exparel 10 mL expanded with 10 mL of sterile saline injected per general house worker recommendation and technique in a grid like fashion subcutaneously. The incision was then dressed with Adaptic, sterile 4 x 4, Kerlix and Alexander wrap and cam boot was applied to the right lower extremity. Tourniquet was deflated and a prompt hyperemic response is noted to the distal digits of the right foot. Patient tolerated the procedure and anesthesia well and was transferred to the PACU with vital signs stable and vascular status intact. Following a period of postoperative monitoring she will be discharged home is to remain strict n onweightbearing to the right lower extremity advised 81 mg aspirin once daily to potentially reduce the risk of deep vein thrombosis. Will be following up in podiatry clinic Monday next week for her first dressing change. Was given my cell phone number to contact with any postoperative questions or concerns.
--- NOTE | 2021-10-08 10:02 | PM.MISC ---
Miscellaneous Note Note: Patient noted to be hypertensive in PACU, eating, drinking sitting up on RA. Labetalol ordered.
[2021-10-08] MEDS: labetalol 5 mg/mL SDV 20mL 10 MG IVP (10:04)
--- NOTE | 2021-10-08 11:54 | ANE.PACU2 ---
Inpatient post-anesthesia follow up: Airway intact: Yes Vital signs: Temperature 97.3 F Pulse Rate 73 Respiratory Rate 18 Blood Pressure 159/87 Pulse Oximetry 96 Oxygen Delivery Me thod Room Air Oxygen Flow Rate Fraction of Inspir ed Oxygen Hydration adequate: Yes Nausea and vomiting: No Pain level: 1 Mental status: Baseline
== END 2021-10-08 10:52 | disposition home or self-care (01) ==
PROVIDERS: Anesthesiology; PCP Nurse Practitioner Family; Visit Provider Podiatrist Foot & Ankle Surgery
PROC: (CPT 28740; principal; 2021-10-08 07:40)
DX: M79.671 Pain in right foot (principal); M19.071 Primary osteoarthritis, right ankle and foot; Z79.82 Long term (current) use of aspirin
CPT/HCPCS: 28730; 73630; 76000; 80048; C1713; C9290; C9359; J1100; J1170; J1200; J2405; J2704; J3490; J7030

== ENCOUNTER → 2021-10-11 15:57 | Outpatient (BNVA) | payer MEDICARE, OTHER, SELFPAY | PROVIDERS: PCP Nurse Practitioner Family; Visit Provider Podiatrist Foot & Ankle Surgery | DX: Z98.890 Other specified postprocedural states (principal) | CPT/HCPCS: 99024 ==

== ENCOUNTER → 2021-10-28 14:15 | Outpatient (BNVA) | payer MEDICARE, OTHER, SELFPAY | PROVIDERS: PCP Nurse Practitioner Family; Visit Provider Podiatrist Foot & Ankle Surgery | DX: Z98.890 Other specified postprocedural states (principal) | CPT/HCPCS: 73630; 99024 ==

== ENCOUNTER → 2021-11-17 12:48 | Outpatient (BNVA) | payer MEDICARE, OTHER, SELFPAY | PROVIDERS: PCP Nurse Practitioner Family; Visit Provider Podiatrist Foot & Ankle Surgery | DX: Z98.890 Other specified postprocedural states (principal) | CPT/HCPCS: 73630; 99024 ==

== ENCOUNTER → 2021-12-01 09:38 | Outpatient (BNVA) | payer MEDICARE, OTHER, SELFPAY | PROVIDERS: PCP Nurse Practitioner Family; Visit Provider Podiatrist Foot & Ankle Surgery | DX: Z98.890 Other specified postprocedural states (principal) | CPT/HCPCS: 29580 ==

== ENCOUNTER → 2021-12-01 09:41 | Outpatient (BNVA) | payer MEDICARE, OTHER, SELFPAY | PROVIDERS: PCP Nurse Practitioner Family; Visit Provider Podiatrist Foot & Ankle Surgery | DX: Z98.890 Other specified postprocedural states (principal) | CPT/HCPCS: 29580; 73630 ==

== ENCOUNTER → 2021-12-08 09:28 | Outpatient (BNVA) | payer MEDICARE, OTHER, SELFPAY | PROVIDERS: PCP Nurse Practitioner Family; Visit Provider Podiatrist Foot & Ankle Surgery | DX: Z98.890 Other specified postprocedural states (principal) | CPT/HCPCS: 99024 ==

== ENCOUNTER → 2021-12-30 13:02 | Outpatient (BNVA) | payer MEDICARE, OTHER, SELFPAY | PROVIDERS: PCP Nurse Practitioner Family; Visit Provider Podiatrist Foot & Ankle Surgery | DX: Z98.890 Other specified postprocedural states (principal) | CPT/HCPCS: 73630; 99024 ==

== ENCOUNTER → 2022-03-16 09:45 | Outpatient (BNVA) | payer MEDICARE, OTHER, SELFPAY | PROVIDERS: PCP Nurse Practitioner Family; Visit Provider Orthopaedic Surgery | DX: Z96.653 Presence of artificial knee joint, bilateral (principal) | CPT/HCPCS: 20610; 73560; 73565; 99213; J3301; J3490 ==

== ENCOUNTER → 2022-03-24 14:01 | Outpatient (BNVA) | payer MEDICARE, OTHER, SELFPAY | PROVIDERS: PCP Nurse Practitioner Family; Visit Provider Podiatrist Foot & Ankle Surgery | DX: Z98.890 Other specified postprocedural states (principal); S93.324S Dislocation of tarsometatarsal joint of right foot, sequela; X58.XXXS Exposure to other specified factors, sequela; M19.071 Primary osteoarthritis, right ankle and foot | CPT/HCPCS: 73630; 99214 ==

== ENCOUNTER → 2022-06-08 10:50 | Outpatient (BNVA) | payer MEDICARE, OTHER, SELFPAY | PROVIDERS: PCP Nurse Practitioner Family; Visit Provider Orthopaedic Surgery | DX: M19.011 Primary osteoarthritis, right shoulder (principal) | CPT/HCPCS: 20610; 99212; J0702; J3490 ==

== ENCOUNTER → 2022-07-20 13:32 | Outpatient (BNVA) | payer MEDICARE, OTHER, SELFPAY | PROVIDERS: PCP Nurse Practitioner Family; Visit Provider Podiatrist Foot & Ankle Surgery | DX: M79.671 Pain in right foot (principal); X58.XXXS Exposure to other specified factors, sequela; M19.072 Primary osteoarthritis, left ankle and foot; S93.324S Dislocation of tarsometatarsal joint of right foot, sequela; M19.011 Primary osteoarthritis, right shoulder | CPT/HCPCS: 73030; 99213 ==

== ENCOUNTER → 2022-11-28 09:26 | Outpatient (BNVA) | payer MEDICARE, OTHER, SELFPAY | PROVIDERS: PCP Nurse Practitioner Family; Visit Provider Podiatrist Foot & Ankle Surgery | DX: M79.671 Pain in right foot (principal); G89.29 Other chronic pain; S93.324S Dislocation of tarsometatarsal joint of right foot, sequela; X58.XXXS Exposure to other specified factors, sequela; M19.071 Primary osteoarthritis, right ankle and foot | CPT/HCPCS: 73630 ==

== ENCOUNTER 2022-11-28 11:45 | Outpatient (CLI) | payer MEDICARE, OTHER, SELFPAY | END 2022-11-28 11:46 | disposition home or self-care (01) | LOC: SPT 11:46 | PROVIDERS: PCP Nurse Practitioner Family; Visit Provider Podiatrist Foot & Ankle Surgery | DX: Z46.89 Encounter for fitting and adjustment of other specified devices (principal); M79.671 Pain in right foot | CPT/HCPCS: 99213; L3031 ==

== ENCOUNTER 2023-01-11 13:08 | Outpatient (CLI) | payer MEDICARE, OTHER, SELFPAY | END 2023-01-11 13:09 | disposition home or self-care (01) | LOC: SPT 13:09 | PROVIDERS: PCP Nurse Practitioner Family; Visit Provider Podiatrist Foot & Ankle Surgery | DX: Z46.89 Encounter for fitting and adjustment of other specified devices (principal); S93.326D Dislocation of tarsometatarsal joint of unspecified foot, subsequent encounter; X58.XXXD Exposure to other specified factors, subsequent encounter; M79.671 Pain in right foot; G89.29 Other chronic pain | CPT/HCPCS: 97760; L3030 ==

== ENCOUNTER → 2023-01-30 10:29 | Outpatient (BNVA) | payer MEDICARE, OTHER, SELFPAY | PROVIDERS: PCP Nurse Practitioner Family; Visit Provider Podiatrist Foot & Ankle Surgery | DX: S93.324S Dislocation of tarsometatarsal joint of right foot, sequela; M79.671 Pain in right foot; X58.XXXS Exposure to other specified factors, sequela; M19.071 Primary osteoarthritis, right ankle and foot | CPT/HCPCS: 99213 ==

== ENCOUNTER → 2023-07-18 13:16 | Outpatient (BNVA) | payer MEDICARE, OTHER, SELFPAY | PROVIDERS: PCP Nurse Practitioner Family; Visit Provider Podiatrist Foot & Ankle Surgery | DX: M19.071 Primary osteoarthritis, right ankle and foot; M19.072 Primary osteoarthritis, left ankle and foot; S93.324S Dislocation of tarsometatarsal joint of right foot, sequela; X58.XXXS Exposure to other specified factors, sequela | CPT/HCPCS: 73630; 99213 ==

== ENCOUNTER → 2023-11-13 09:25 | Outpatient (BNVA) | payer MEDICARE, SELFPAY | PROVIDERS: PCP Nurse Practitioner Family; Visit Provider Podiatrist Foot & Ankle Surgery | DX: M19.071 Primary osteoarthritis, right ankle and foot (principal); M19.072 Primary osteoarthritis, left ankle and foot; M79.672 Pain in left foot | CPT/HCPCS: 99214 ==

== ENCOUNTER → 2023-11-24 07:41 | Day surgery (SDC) | payer MEDICARE, SELFPAY ==
[2023-11-24] VITALS (10 sets, daily range): BP systolic 91–231; BP diastolic 43–103; PULSE 60–91; RESP 14–18; TEMP 36.7–36.8; O2SAT 90–97; BMI 29.8
--- NOTE | 2023-11-24 | XR_ITS ---
WS: [id number] C-ARM RADIOGRAPHS LEFT FOOT; 2 IMAGES HISTORY: IVONE PICS COMPARISON: 07/18/2023 radiograph Intraoperative imaging during plate and screw fixation of the tarsal/second metatarsal articulation. XR/XR foot LT 2V [id number] IMPRESSION: Intraoperative imaging during fusion across the tarsometatarsal joint at the se cond metatarsal.
[2023-11-24] MEDS: gabapentin 300 mg Capsule PO (08:13)
[2023-11-24] MEDS: sodium chloride 0.9% 1,000 ML 30 ML IV (08:15)
--- NOTE | 2023-11-24 08:34 | ANES.PREANE2 ---
Pre-Anesthetic Assessment Height/Weight: Height 1.68 m Weight 83.915 kg Temp Pulse Resp BP Pulse Ox O2 Del Method 98.1 F 75 18 231/103 97 Room Air 11/24/23 08:03 11/24/23 08:03 11/24/23 08:03 11/24/23 08:03 11/24/23 08:03 11/24/23 08:19 Preop Diagnosis: Left midfoot arthritis Operation Date: 11/24/23 09:40 Proposed Procedures p Left second tarsometatarsal joint fusion(Left) - Ganga Zhou DPM Familial anesthetic complications: none Was Beta Jean taken within 24 hours: N/A Was Clonidine taken within 24 hours: N/A Last intake: Intake Last Liquid Date 11/23/23 Last Liquid Time 21:00 Last Solid Date 11/23/23 Last Solid Time 17:30 Social No alcohol and No tobacco Exam alert, oriented x 3, clear to auscultation bilaterally and regular rate & rhythm Airway Mallampati: Class II Dentition: loose CV/HEM Hypertension Musc/sendy sjogren's Anesthetic Plan ASA status: 3 Anesthesia: MAC Risk of > 500 ml blood loss (7ml/kg in children): No Medications/Allergies Home Medications Medication Instructions Recorded Confirmed Last Taken Type Carbon Fiber Plate to the right #1 ea 11/28/22 11/13/23 Unknown Rx Custom Sole Supports #1 ea 11/28/22 11/13/23 Unknown Rx lisinopril 20 mg tablet 20 mg PO BID 07/18/23 11/23/23 11/23/23 History meloxicam 15 mg tablet 15 mg PO DAILY 07/18/23 11/23/23 11/23/23 History cyclobenzaprine 5 mg tablet 5 mg PO PRN PRN Spasms 11/13/23 11/24/23 3 Weeks Ago History ~11/03/23 gabapentin 300 mg capsule 300 mg PO DAILY PRN Pain 11/13/23 11/23/23 11/21/23 History hydralazine 10 mg tablet 10 mg PO PRN PRN Hypertension 11/23/23 11/23/23 11/23/23 History Allergies Allergy/AdvReac Type Severity Reaction Status Date / Time diclofenac Allergy headache Verified 11/23/23 16:20 meperidine [From Demerol] Allergy ADR-Halluci Verified 11/23/23 16:20 nating Current Medications Generic Name Dose Route Start Last Admin Trade Name Onesimoq PRN Reason Stop Dose Admin Sodium Chloride 1,000 mls @ 30 mls/hr 11/24/23 08:00 11/24/23 08:15 Sodium Chloride 0.9% IV 11/25/23 07:59 30 mls/hr .Q24H DANIEL Administration PFSH Anesthesia Medical History Primary osteoarthritis of left hip Hypertension Surgical History Status post total hip replacement, left H/O: History of bilateral carpal tunnel release H/O: hysterectomy H/O arthroscopy of right knee History of total right knee replacement Social History Smoking and tobacco/nicotine status: never used tobacco/nicotine Alcohol intake: never Data Anesthesia Cardiac Studies: No Data to Display
[2023-11-24] MEDS: hyDRALAzine 20 mg/mL INJ 1 mL 10 MG IVP (08:35)
--- NOTE | 2023-11-24 10:05 | P.HPUD_ITS ---
Surgery/Procedure H&P Update DATE OF PROCEDURE: November 24, 2023 DATE H&P PERFORMED: 11/13/23 H&P UPDATE INFORMATION: I have reviewed H&P completed within last 30 days, I have examined patient prior to procedure, No changes to prior documentation and H&P is in [facility] on date indicated PREOP DIAGNOSIS: Left midfoot arthritis PLANNED PROCEDURE: Operation Date: 11/24/23 09:40 Proposed Procedures p Left second tarsometatarsal joint fusion(Left) - Ganga Zhou DPM
[2023-11-24] MEDS: ceFAZolin 2,000 mg SDV 2000 MG IVP (10:25)
[2023-11-24] MEDS: BUPivacaine 0.5% INJ 30 mL 20 ML INJECTION (10:30)
[2023-11-24] MEDS: BUPivacaine liposome 13.3 mg/mL SDV 20 mL 266 MG INFILTRATI (10:30)
--- NOTE | 2023-11-24 11:12 | W.PM.BPON ---
Date of Procedure: 06/30/23 Surgeon: Ganga Zhou DPM Interior Design Principal(s): Michelle Schmidt Procedure(s) performed: Left second tarsometatarsal joint fusion Findings of the procedure(s): None Estimated blood loss: 2 mL Specimen(s) removed: No specimens Post-operative diagnosis: Left second tarsometatarsal joint arthritis Local MAC, guerita, supine, tourniquet time 24 minutes no complications with anesthesia or surgery
--- NOTE | 2023-11-24 11:13 | P.OP_ITS ---
Operative Report Date of procedure: November 24, 2023 Pre-op diagnosis: Posttraumatic arthritis left midfoot Post-op diagnosis: Posttraumatic arthritis left midfoot Procedure done: Left second tarsometatarsal joint arthrodesis. CPT code 58407 Implants: [place] straight slanted dorsal locking plate with 2.7 millimeter screws, 3-0 Vicryl, 4-0 Vicryl, 4-0 nylon Pathology: No pathology Surgeon: Ganga Zhou DPM Capping Machine Operator: Michelle Schmidt Estimated blood loss: 2 mL 24 minutes Brief History: Pleasant 78-year-old female presents with complaints of left foot pain and wishing to discuss surgical intervention. Her left foot is no longer responding to accommodative shoes, alternating shoe lacing configuration to relieve pressure off of the painful spur at the dorsum of her left foot. Topical anti- inflammatories and stretching as well as arch supports no longer alleviating her left foot pain which is now affecting her overall quality of life with everyday activities. She underwent a right second tarsometatarsal joint arthrodesis for the same condition with successful recovery. Like to proceed with the left at next available opportunity. I reviewed at length with the patient, the risks, potential complications, benefits, alternatives, expectations, and typical outcomes associated with the surgery. The risks and potential complications were explained in detail, including but not limited to infection, wound dehiscence or soft tissue complications, bleeding and hematoma, chronic edema, neuritis or nerve damage producing numbness or chronic pain, CRPS, failure to relieve pain or worsening pain, thick / painful / unsightly scar, limited motion / stiffness, malposition, delayed union, malunion, or nonunion, fracture, reaction to implants, anesthetic complications, venous thromboembolism, and deformity recurrence. I discussed the notion of no regrets with the patient as it pertains to complications and outcomes. The patient seemed to understand the nature of the proposed care and required convalescence. They asked appropriate questions, answered to their satisfaction. They are aware no guarantees can be made as to a satisfactory outcome and they understand there may be other possible unforeseen complications or outcomes not listed here that will be treated accordingly if they arise. There were no written or implied guarantees given to the patient. They gave informed consent to proceed. Procedure: Under mild sedation the patient was brought to the operating room and remained on the gurney in supine position. A timeout was performed. Anesthesia was then administered by the anesthesia service. Local anesthesia injected by myself consisting of a posterior tibial nerve block as well as proximal field block across the anterior ankle of the left lower extremity, this was accomplished with a total of 30 cc of 0.25% Marcaine plain. Well-padded pneumatic tourniquet applied to the left ankle. The left lower extremity was then scrubbed, prepped and draped utilizing normal aseptic technique. Left foot was exanguinated with an Esmarch bandage and the tourniquet inflated to 250 mmHg. Tissue was directed to the dorsal aspect of the left midfoot where a linear longitudinal incision was made over the second tarsometatarsal joint with a #15 blade. Dissection was carried down through subcutaneous tissue to the layer of periosteum utilizing a combination of blunt and sharp technique. Care was taken to retract and preserve neurovascular and tendinous structures. All bleeders were ligated and cauterized as necessary. Periosteal incision was made and a significant bony hypertrophy dorsal exostosis of the second tarsometatarsal joint was transected utilizing osteotome and mallet. The second tarsometatarsal joint was degenerative, hypermobility appreciated intraoperatively. Second tarsometatarsal joint was then resected of remaining cartilaginous surface and flushed with saline solution followed by subchondral drilling and fixation utilizing standard AO technique. This was fixated utilizing a [place] 28 clover plate with excellent bony apposition and compression noted, DBM 1 cc packed to fill all voids at the second tarsometatarsal joint. Combination of locking and nonlocking 2.7 millimeter screws provided by [place] 28 with excellent bony apposition and compression without violating adjacent joints this was confirmed with all 3 views intraoperative fluoroscopy was employed. Thorough inspection of the second tarsometatarsal joint was performed intraoperatively and noted to have stability at the joint, no hypermobility appreciated on range of motion and loading, no degenerative changes or significant dorsal exostosis appreciated. The incision site was flushed with copious amounts of sterile saline solution. Periosteum was reapproximated utilizing 3-0 Vicryl. Subcutaneous tissue closed with 4-0 Vicryl and skin with 4-0 nylon. Exparel 10 mL expanded with 10 mL of sterile saline injected per cloth tearer recommendation and technique in a grid like fashion subcutaneously. The incision was then dressed with Adaptic, sterile 4 x 4, Kerlix and Alexander wrap and cam boot was applied to the left selective left lower extremity. Tourniquet was deflated and a prompt hyperemic response is noted to the distal digits of the left foot. Patient tolerated the procedure and anesthesia well and was transferred to the PACU with vital signs stable and vascular status intact. Following a period of postoperative monitoring she will be discharged home is to remain strict nonweightbearing to the left lower extremity advised 81 mg aspirin once daily to potentially reduce the risk of deep vein thrombosis. Will be following up in podiatry clinic Monday next week for her first dressing change. Was given my cell phone number to contact with any postoperative questions or concerns.
--- NOTE | 2023-11-24 13:15 | ANE.PACU2 ---
Inpatient post-anesthesia follow up: Airway intact: Yes Vital signs: Temperature 98.0 F Pulse Rate 72 Respiratory Rate 18 Blood Pressure 151/72 Pulse Oximetry 95 Oxygen Delivery Me thod Room Air Oxygen Flow Rate Fraction of Inspir ed Oxygen Hydration adequate: Yes Nausea and vomiting: No Pain level: 1 Mental status: Baseline
== END | disposition home or self-care (01) ==
PROVIDERS: PCP Registered Nurse; Visit Provider Podiatrist Foot & Ankle Surgery
PROC: (CPT 28740; principal; 2023-11-24 09:30)
DX: M19.072 Primary osteoarthritis, left ankle and foot (principal); I10 Essential (primary) hypertension
CPT/HCPCS: 28730; 73620; 76000; C1713; C9290; J0360; J0690; J2704; J3010; J3490; J7030

== ENCOUNTER → 2023-12-07 11:58 | Outpatient (BNVA) | payer MEDICARE, SELFPAY | PROVIDERS: PCP Registered Nurse; Visit Provider Podiatrist Foot & Ankle Surgery | DX: Z98.890 Other specified postprocedural states (principal) | CPT/HCPCS: 73630; 99024 ==

== ENCOUNTER 2023-12-07 14:18 | Outpatient (CLI) | payer MEDICARE, SELFPAY | END 2023-12-07 14:19 | disposition home or self-care (01) | LOC: SPT 14:19 | PROVIDERS: PCP Registered Nurse; Visit Provider Podiatrist Foot & Ankle Surgery | DX: Z47.89 Encounter for other orthopedic aftercare (principal) | CPT/HCPCS: L4361 ==

== ENCOUNTER → 2024-01-04 10:16 | Outpatient (BNVA) | payer MEDICARE, SELFPAY | PROVIDERS: PCP Registered Nurse; Visit Provider Podiatrist Foot & Ankle Surgery | DX: Z98.890 Other specified postprocedural states (principal) | CPT/HCPCS: 73630; 99024 ==

== ENCOUNTER → 2024-02-01 12:34 | Outpatient (BNVA) | payer MEDICARE, SELFPAY | PROVIDERS: PCP Registered Nurse; Visit Provider Podiatrist Foot & Ankle Surgery | DX: Z98.890 Other specified postprocedural states (principal) | CPT/HCPCS: 73630; 99024 ==

== ENCOUNTER → 2024-06-12 09:09 | Outpatient (BNVA) | payer MEDICARE, SELFPAY | PROVIDERS: PCP Registered Nurse; Visit Provider Podiatrist Foot & Ankle Surgery | DX: M79.671 Pain in right foot (principal); M77.41 Metatarsalgia, right foot; M20.41 Other hammer toe(s) (acquired), right foot; M25.871 Other specified joint disorders, right ankle and foot | CPT/HCPCS: 73630; 99213 ==

== ENCOUNTER → 2024-07-10 09:24 | Outpatient (BNVA) | payer MEDICARE, SELFPAY | PROVIDERS: PCP Registered Nurse; Visit Provider Podiatrist Foot & Ankle Surgery | DX: M79.671 Pain in right foot (principal); M77.41 Metatarsalgia, right foot; M20.41 Other hammer toe(s) (acquired), right foot; M25.871 Other specified joint disorders, right ankle and foot | CPT/HCPCS: 99213 ==

== ENCOUNTER → 2024-08-13 06:52 | Outpatient (BNVA) | payer MEDICARE, SELFPAY | PROVIDERS: PCP Registered Nurse; Visit Provider Podiatrist Foot & Ankle Surgery | DX: M79.671 Pain in right foot (principal); M77.41 Metatarsalgia, right foot; M20.41 Other hammer toe(s) (acquired), right foot; M25.871 Other specified joint disorders, right ankle and foot; M25.872 Other specified joint disorders, left ankle and foot | CPT/HCPCS: 73630; 99214 ==

== ENCOUNTER → 2024-09-19 13:22 | Outpatient (BNVA) | payer MEDICARE, SELFPAY | PROVIDERS: PCP Registered Nurse; Visit Provider Podiatrist Foot & Ankle Surgery | DX: M79.672 Pain in left foot (principal); M79.671 Pain in right foot; M77.41 Metatarsalgia, right foot; M20.41 Other hammer toe(s) (acquired), right foot; M25.871 Other specified joint disorders, right ankle and foot; M25.872 Other specified joint disorders, left ankle and foot; M77.42 Metatarsalgia, left foot | CPT/HCPCS: 73630; 99213 ==

== ENCOUNTER → 2024-10-22 10:26 | Outpatient (BNVA) | payer MEDICARE, SELFPAY | PROVIDERS: PCP Registered Nurse; Visit Provider Podiatrist Foot & Ankle Surgery | DX: M77.41 Metatarsalgia, right foot (principal); M20.41 Other hammer toe(s) (acquired), right foot; M25.871 Other specified joint disorders, right ankle and foot; M77.42 Metatarsalgia, left foot; M25.872 Other specified joint disorders, left ankle and foot | CPT/HCPCS: 73630; 99213 ==

== ENCOUNTER → 2024-11-26 08:31 | Outpatient (BNVA) | payer MEDICARE, SELFPAY | PROVIDERS: PCP Registered Nurse; Visit Provider Podiatrist Foot & Ankle Surgery | DX: M77.41 Metatarsalgia, right foot (principal); M20.41 Other hammer toe(s) (acquired), right foot; M25.871 Other specified joint disorders, right ankle and foot; M20.42 Other hammer toe(s) (acquired), left foot; M24.576 Contracture, unspecified foot | CPT/HCPCS: 99214 ==

== ENCOUNTER 2024-11-29 06:51 | Day surgery (SDC) | payer MEDICARE, SELFPAY ==
[2024-11-29] VITALS (14 sets, daily range): BP systolic 125–183; BP diastolic 51–107; PULSE 63–104; RESP 16–22; TEMP 36.2–36.4; O2SAT 94–98
--- NOTE | 2024-11-29 08:00 | P.OP_ITS ---
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 CPT code 47757. 2) right second hammertoe correction. CPT code 04361 3) right third hammertoe correction. CPT code 89929 4) right fourth toe flexor tenotomy. CPT code 46038 5) left fifth toe flexor tenotomy. CPT code 43435 6) tendon transfer right foot. CPT code 35148 7) deep hardware removal left foot. CPT code 16644 Implants: [employer] Hammer tube x 3 [employer] snap off screw 3-0 Vicryl, 4-0 Vicryl, 4-0 nylon Surgeon: Ganga Zhou DPM Plaster Machine Operator: Kate Estimated blood loss: 5 See intra-operative documentation IV fluids: See intra-operative documentation Urine output: None Complications: None Brief History: Established 79 year old female patient presenting to clinic for an update of H&P and pre-op for surgery this Monday11/29/24. Patient has pain left and right foot daily affecting overall quality of life and reducing her activity levels has failed to respond to conservative treatments consisting of custom orthotics, accommodative shoes, stretching, topical and oral anti-inflammatories and activity modifications. Requesting hardware removal at left foot. Left fifth toe hammertoe correction via flexor tenotomy. Flexor tenotomy of the right fourth toe. Hammertoe correction of right 2nd and 3rd toe and Marcus osteotomy of the right second metatarsal. I reviewed at length with the patient, the risks, potential complications, benefits, alternatives, expectations, and typical outcomes associated with the surgery. The risks and potential complications were explained in detail, including but not limited to infection, wound dehiscence or soft tissue complications, bleeding and hematoma, chronic edema, neuritis or nerve damage producing numbness or chronic pain, CRPS, failure to relieve pain or worsening pain, thick / painful / unsightly scar, limited motion / stiffness, malposition, delayed union, malunion, or nonunion, fracture, reaction to implants, anesthetic complications, venous thromboembolism, and deformity recurrence. I discussed the notion of no regrets with the patient as it pertains to complications and outcomes. The patient seemed to understand the nature of the proposed care and required convalescence. They asked appropriate questions, answered to their s atisfaction. They are aware no guarantees can be made as to a satisfactory outcome and they understand there may be other possible unforeseen complications or outcomes not listed here that will be treated accordingly if they arise. There were no written or implied guarantees given to the patient. They gave informed consent to proceed. Procedure: Under mild sedation patient was brought to the operating room and remained on the gurney in supine position. A timeout was performed. Anesthesia was administered by the anesthesia service. Local anesthesia injected by myself consisting of a total of 20 cc of 0.5 sent Marcaine and a right second, third, fourth ray block fashion as well as a V-block proximal to the operative site of the left dorsal foot and fifth toe. Additional 20 cc of Exparel infiltrated subcutaneously in a grid like fashion left and right foot. Well-padded pneumatic tourniquet applied to the left and right ankle. Left and right foot were scrubbed, prepped and draped utilizing normal aseptic technique. Left and right foot and ankle were exanguinated with Esmarch bandage and tourniquet inflated to 250 mmHg. Attention was directed to the dorsal aspect of the right second metatarsal phalangeal joint where a curvilinear incision was performed directly over the second metatarsal phalangeal joint through skin with a #15 blade with dissection carried down through subcutaneous tissue utilizing a combination of blunt and sharp technique. Care was taken to retract and preserve neurovascular and tendinous structures. All bleeders were ligated and cauterized as necessary. Marcus Osteotomy is performed oriented from dorsal distal to plantar proximal parallel to the weightbearing surface of the foot at the right second metatarsal head which was then translated proximally and slightly laterally to correct multiple planes of deformity this was then fixated utilizing a [employer] snap off screw with excellent bony apposition and compression noted, bony shelf was smoothed with rongeur and hand rasp. The incision was irrigated with saline solution. And closed in layered fashion with 3-0 Vicryl, 4-0 Vicryl and 4 n ylon. Attention was directed to the right forefoot where deep tendon contracture was appreciated with sagittal plane dominant deformity of the right second toe as well as arthrosis of the right second proximal interphalangeal joint. A linear longitudinal incision made over the dorsal aspect of the right second toe through skin with a #15 blade with dissection carried down to extensor tendon which was transected at the level of the proximal interphalangeal joint and dissected proximally and temporary by a mosquito hemostat. The head and base of the right second proximal interphalangeal joint were resected with a oscillating saw pad about the field. Sharp dissection carried down to the flexor digitorum longus tendon which was transected at its most distal margin and split longitudinally and then transferred both medially laterally and hemisections fashion and transferred to the dorsal aspect of the right second toe which was then held in rectus and tendon was reapproximated utilizing 4-0 nylon helping to reduce the sagittal plane deformity at the right second toe and to help prevent cock-up toe deformity. The incision was irrigated with saline solution. Attention was directed at arthrodesis site of the proximal interphalangeal joint right second toe where subchondral drilling was performed at the proximal phalanx head and intermediate phalanx base. Next utilizing manufacture recommendation and technique [employer] hammer tube intramedullary implant was placed within the medullary canal of the intermediate and proximal phalanx of the right second toe holding this rectus and allowing excellent compression at the proximal interphalangeal joint arthrodesis site excellent placement of hardware and rectus right second toe was appreciated both intraoperatively under direct visualization as well as with AP, oblique and lateral views noted to be excellent in all 3 planes with the second metatarsal plantar joint not being violated. Smooth range of motion appreciated at the right second metatarsal phalangeal joint. The incision was then flushed with copious amounts of sterile saline solution and the extensor tendon was reapproximated utilizing 4-0 Vicryl. Subcutaneous tissue closed with 4-0 Vicryl and skin with 4-0 nylon. Attention was then directed to the dorsal aspect of the right 3rd and 4th hammertoe contractures with apex of deformity at the proximal interphalangeal joint, at the dorsal aspect of the proximal phalangeal joint right 3rd and 4th toes a linear incision was made through skin with a #15 blade with dissection carried down to extensor tendon utilizing sharp and blunt technique. Care was taken to retract and preserve neurovascular and tendinous structures. All bleeders were ligated and cauterized as necessary. Transverse extensor tenotomy was performed followed by capsular release and resection of the head of the proximal phalanx and base of the intermediate phalanx of the right 3rd and 4th toes which were then passed from the operative field and irrigated with saline solution followed by fixation of hammertoe with proximal interphalange joint arthrodesis with intramedullary implant 5 [employer] 28 hammertoe at the right 3rd and 4th toes noted to be rectus and well-seated followed by saline flush and capsular and tendinous structures reapproximated with 4-0 Vicryl, skin with 4-0 nylon. Attention was then directed to the left fifth toe which was noted to be contracted, this was manually straightened and a 18-gauge was utilized to release the flexor digitorum longus and flexor digitorum brevis within the plantar sulcus while maintaining corrected position manually with a audible and physical release noted and correction of deformity in all 3 planes the incision was irrigated saline solution. Attention was then directed to the dorsal aspect of the left midfoot where prominent hardware was palpated directly over hardware incision was performed through skin with dissection carried down through subcutaneous tissues down to periosteal level utilizing sharp and blunt technique. Care was taken to retract and preserve neurovascular and tendinous structures. All bleeders were ligated and cauterized as necessary. Screw was able to be removed from bone and passed from the operative field. The incision was irrigated saline solution and closed with 4-0 Vicryl and 4-0 nylon. The incisions left and right foot was then dressed with Adaptic, sterile 4 x 4's, Kerlix and Alexander wrap followed by application of a cam boot to the right lower extremity in postop shoe to the left. Tourniquet was deflated and a prompt hyperemic response was noted to the distal digits of the right foot. Patient tolerated the procedure and anesthesia well and was transferred to the PACU with vital signs stable and vascular status intact. Following a period of postoperative monitoring he will be discharged home was given at home care instructions and scheduled follow-up he is also given my cell phone number to contact me directly with any postoperative questions or concerns.
--- NOTE | 2024-11-29 08:36 | W.PM.OPSUD ---
Surgery/Procedure H&P Update DATE OF PROCEDURE: November 29, 2024 DATE H&P PERFORMED: 10/22/24 H&P UPDATE INFORMATION: I have reviewed H&P completed within last 30 days, I have examined patient prior to procedure, No changes to prior documentation and Risks and benefits of the procedure reviewed PREOP DIAGNOSIS: Painful hardware left foot. Bilateral hammertoe, right metatarsalgia. PLANNED PROCEDURE: Operation Date: 11/29/24 08:50 Proposed Procedures p Marcus Osteotomy right second metatarsal(Right) - [facility] Right second Hammertoe Correction and right third hammertoe correction(Right) - [facility] Tendon Transfer Foot(Right) - [facility] Deep Hardware Removal left foot(Left) - [facility] Toe Flexor Tenotomy Right fourth and fifth Left toe - Ganga Zhou DPM
[2024-11-29] MEDS: ceFAZolin 2,000 mg SDV 2000 MG IVP (08:47)
--- NOTE | 2024-11-29 08:48 | ANES.PREANE2 ---
Pre-Anesthetic Assessment Height/Weight: Height 1.68 m Weight 78.471 kg Temp Pulse Resp BP Pulse Ox O2 Del Method 97.5 F L 63 16 164/70 98 Room Air 11/29/24 07:38 11/29/24 07:38 11/29/24 07:38 11/29/24 07:38 11/29/24 07:38 11/29/24 07:38 Preop Diagnosis: Painful hardware left foot. Bilateral hammertoe, right metatarsalgia. Operation Date: 11/29/24 08:50 Proposed Procedures p Marcus Osteotomy right second metatarsal(Right) - [facility] Right second Hammertoe Correction and right third hammertoe correction(Right) - [facility] Tendon Transfer Foot(Right) - [facility] Deep Hardware Removal left foot(Left) - [facility] Toe Flexor Tenotomy Right fourth and Right Left toe(Bilateral) - Ganga Zhou DPM Familial anesthetic complications: none Was Beta Jean taken within 24 hours: N/A Was Clonidine taken within 24 hours: N/A Last intake: Intake Last Liquid Date 11/28/24 Last Liquid Time 22:00 Last Solid Date 11/28/24 Last Solid Time 21:00 Social No alcohol and No tobacco Exam alert, oriented x 3, clear to auscultation bilaterally and regular rate & rhythm Airway Mallampati: Class I Dentition: loose Darell/sendy salgado's Anesthetic Plan ASA status: 2 Anesthesia: General Risk of > 500 ml blood loss (7ml/kg in children): No Medications/Allergies Home Medications ?Medication ?Instructions ?Recorded ?Confirmed ?Last Taken ?Type Custom Sole Supports #1 ea 11/28/22 11/26/24 Unknown Rx lisinopril 20 mg tablet 20 mg PO BID 07/18/23 11/28/24 11/28/24 History hydralazine 10 mg tablet 10 mg PO PRN PRN Hypertension 11/23/23 11/28/24 11/28/24 History sertraline 25 mg tablet 25 mg PO DAILY 06/12/24 11/28/24 11/28/24 History hydroxychloroquine 200 mg tablet 200 mg PO BID 07/10/24 11/28/24 11/28/24 History (Plaquenil) hydrocodone 10 mg-acetaminophen 1 tab PO Q6H PRN pain 7 days #28 11/29/24 Unknown Rx 325 mg tablet tabs Allergies Allergy/AdvReac Type Severity Reaction Status Date / Time diclofenac Allergy headache Verified 11/28/24 12:14 meperidine (From Demerol) Allergy ADR-Halluci Verified 11/28/24 12:14 nating Current Medications Generic Name Dose Route Start Last Admin Trade Name Freq PRN Reason Stop Dose Admin Sodium Chloride 1,000 mls @ 30 mls/hr 11/29/24 07:15 11/29/24 07:22 Sodium Chloride 0.9% IV 11/30/24 07:14 30 mls/hr .Q24H DANIEL Administration PFSH Anesthesia Medical History (Updated 11/26/24 @ 17:06 by Ganga Zhou DPM) Primary osteoarthritis of left hip Hypertension Surgical History Status post total hip replacement, left H/O: History of bilateral carpal tunnel release H/O: hysterectomy H/O arthroscopy of right knee History of total right knee replacement Social History Smoking and tobacco/nicotine status: never used tobacco/nicotine Alcohol intake: never
[2024-11-29] MEDS: BUPivacaine liposome 13.3 mg/mL SDV 20 mL 266 MG INJECTION (09:05)
[2024-11-29] MEDS: BUPivacaine 0.5% INJ 30 mL INJECTION (09:05)
--- NOTE | 2024-11-29 10:15 | P.BOP_ITS ---
Date of Procedure: 06/30/23 Surgeon: Ganga Zhou DPM Cinder Block Maker(s): Brayan Procedure(s) performed: Left fifth toe tenotomy, left foot hardware removal, right Marcus osteotomy second metatarsal, right second, third, fourth hammertoe correction. Findings of the procedure(s): None Estimated blood loss: 2 mL Specimen(s) removed: No specimens Post-operative diagnosis: Left and right hammertoe deformity. Painful hardware left foot. Right metatarsalgia.
--- NOTE | 2024-11-29 10:19 | XR_ITS ---
WS: [id number] Right foot, 3 views, 11/29/2024 Clinical Data: post op Comparison: Right foot, 10/22/2024 Findings: There is an osteotomy at the head of the right second metatarsal with an oblique screw inserted. There are artificial PIP joints in the right second through fourth toes. The fusion of the right second metatarsal cuneiform joint with a plate and screws remains the same. XR/XR foot RT min 3V* [id number] Impression: Postoperative changes of the right foot.
[2024-11-29] MEDS: labetalol 5 mg/mL SDV 20mL 10 MG IVP (10:55)
--- NOTE | 2024-11-29 10:58 | PC.NURSE ---
BP - Dr. Tilley called about bp. \labetalol given.
--- NOTE | 2024-11-29 11:35 | ANE.PACU2 ---
Inpatient post-anesthesia follow up: Airway intact: Yes Vital signs: Temperature 97.3 F Pulse Rate 75 Respiratory Rate 18 Blood Pressure 143/68 Pulse Oximetry 94 Oxygen Delivery Me thod Room Air Oxygen Flow Rate Fraction of Inspir ed Oxygen Hydration adequate: Yes Nausea and vomiting: No Pain level: 1 Mental status: Baseline
== END 2024-11-29 11:33 | disposition home or self-care (01) ==
PROVIDERS: PCP Registered Nurse; Visit Provider Podiatrist Foot & Ankle Surgery
PROC: (CPT 28308; principal; 2024-11-29 08:50)
PROC: (CPT 28285; 2024-11-29 08:50)
PROC: (CPT 27691; 2024-11-29 08:50)
PROC: (CPT 27691; 2024-11-29 08:50)
PROC: (CPT 27691; 2024-11-29 08:50)
DX: M77.41 Metatarsalgia, right foot (principal); M20.41 Other hammer toe(s) (acquired), right foot; M25.871 Other specified joint disorders, right ankle and foot; M20.42 Other hammer toe(s) (acquired), left foot; M24.576 Contracture, unspecified foot; I10 Essential (primary) hypertension; T84.84XA Pain due to internal orthopedic prosthetic devices, implants and grafts, initial encounter; Z98.890 Other specified postprocedural states; M35.00 Sjogren syndrome, unspecified
CPT/HCPCS: 27691; 28308; 28285 ×2; 28011 ×2; 20680; 73630; C1713 ×2; J0666; J0690; J2704; J3010; J3490; J7030; J9999

== ENCOUNTER → 2024-12-03 08:56 | Outpatient (BNVA) | payer MEDICARE, SELFPAY | PROVIDERS: PCP Registered Nurse; Visit Provider Podiatrist Foot & Ankle Surgery | DX: Z98.890 Other specified postprocedural states (principal) | CPT/HCPCS: 99024 ==

== ENCOUNTER → 2024-12-12 10:44 | Outpatient (BNVA) | payer MEDICARE, SELFPAY | PROVIDERS: PCP Registered Nurse; Visit Provider Podiatrist Foot & Ankle Surgery | DX: Z98.890 Other specified postprocedural states (principal) | CPT/HCPCS: 73630; 99024 ==

== ENCOUNTER → 2024-12-26 13:56 | Outpatient (BNVA) | payer MEDICARE, SELFPAY | PROVIDERS: PCP Registered Nurse; Visit Provider Podiatrist Foot & Ankle Surgery | DX: Z98.890 Other specified postprocedural states (principal) | CPT/HCPCS: 73630; 99024 ==

== ENCOUNTER → 2025-01-09 13:35 | Outpatient (BNVA) | payer MEDICARE, SELFPAY | PROVIDERS: PCP Registered Nurse; Visit Provider Podiatrist Foot & Ankle Surgery | DX: Z98.890 Other specified postprocedural states (principal); T84.84XA Pain due to internal orthopedic prosthetic devices, implants and grafts, initial encounter; M20.41 Other hammer toe(s) (acquired), right foot; Y79.2 Prosthetic and other implants, materials and accessory orthopedic devices associated with adverse incidents | CPT/HCPCS: 73630; 99214 ==

== ENCOUNTER 2025-01-16 10:16 | Day surgery (SDC) | payer MEDICARE, SELFPAY ==
[2025-01-16 10:12] VITALS: BMI 28.2
--- NOTE | 2025-01-16 11:12 | ANES.PREANE2 ---
Pre-Anesthetic Assessment Height/Weight: Height 5 ft 6 in Weight 175 lb O2 Del Method Room Air 01/16/25 10:53 Preop Diagnosis: Right fourth hammertoe Operation Date: 01/16/25 12:00 Proposed Procedures p Revision Hardware Removal Ankle/Foot Foot Hardware Removal(Right) - Ganga Zhou DPM s Revision Right fourth hammertoe correction.(Right) - Ganga Zhou DPM Was Beta Jean taken within 24 hours: N/A Was Clonidine taken within 24 hours: N/A Last intake: Intake Last Liquid Date 01/15/25 Last Liquid Time 23:55 Last Solid Date 01/15/25 Last Solid Time 19:00 Social No alcohol and No tobacco Exam alert, oriented x 3, clear to auscultation bilaterally and regular rate & rhythm Airway Submandibular: within normal limits Cervical ROM: within normal limits Mallampati: Class II Dentition: full Anesthetic Plan ASA status: 2 Anesthesia: General Other: No prior issues with anesthesia NPO since yesterday evening History of hypertension on lisinopril Sjogren's disease, well-controlled Prior GA with us for similar procedure, LMA size 4 Plan for general anesthesia Medications/Allergies Home Medications ?Medication ?Instructions ?Recorded ?Confirmed ?Last Taken ?Type Custom Sole Supports #1 ea 11/28/22 01/15/25 Unknown Rx lisinopril 20 mg tablet 20 mg PO BID 07/18/23 01/15/25 01/15/25 History hydroxychloroquine 200 mg tablet 200 mg PO BID 07/10/24 01/15/25 01/15/25 History (Plaquenil) sertraline 25 mg tablet 50 mg PO DAILY 01/09/25 01/15/25 01/15/25 History Allergies Allergy/AdvReac Type Severity Reaction Status Date / Time diclofenac Allergy headache Verified 01/15/25 10:32 meperidine (From Demerol) Allergy ADR-Halluci Verified 01/15/25 10:32 [place] [facility] Anesthesia Medical History Primary osteoarthritis of left hip Hypertension Surgical History Status post total hip replacement, left H/O: History of bilateral carpal tunnel release H/O: hysterectomy H/O arthroscopy of right knee History of total right knee replacement Social History Smoking and tobacco/nicotine status: never used tobacco/nicotine Alcohol intake: never
--- NOTE | 2025-01-16 12:02 | P.HPUD_ITS ---
Surgery/Procedure H&P Update DATE OF PROCEDURE: January 16, 2025 DATE H&P PERFORMED: 01/09/25 H&P UPDATE INFORMATION: I have reviewed H&P completed within last 30 days, I have examined patient prior to procedure, No changes to prior documentation, H&P is in [facility] EMR on date indicated and Risks and benefits of the procedure reviewed PREOP DIAGNOSIS: Right fourth hammertoe PLANNED PROCEDURE: Operation Date: 01/16/25 12:00 Proposed Procedures p Revision Hardware Removal Ankle/Foot Foot Hardware Removal(Right) - Ganga Zhou DPM s Revision Right fourth hammertoe correction.(Right) - Ganga Zhou DPM
[2025-01-16] MEDS: ceFAZolin 2,000 mg SDV 2000 MG IVP (12:18)
[2025-01-16] MEDS: BUPivacaine 0.5% INJ 10 mL INJECTION (12:45)
[2025-01-16] MEDS: BUPivacaine liposome 13.3 mg/mL SDV 20 mL 266 MG INFILTRATI (12:45)
[2025-01-16 12:51] VITALS: BP 179/58; PULSE 79; RESP 18; TEMP 37.2; O2SAT 92
[2025-01-16 12:56] VITALS: BP 163/68; PULSE 73; RESP 18; O2SAT 91
--- NOTE | 2025-01-16 12:57 | P.BOP_ITS ---
Date of Procedure: 06/30/23 Surgeon: Ganga Zhou DPM Primary Care Sales Representative(s): Lizz Procedure(s) performed: Hardware removal and hammertoe correction right fourth toe Findings of the procedure(s): Subsidence of implant right fourth toe gapping arthrodesis site at the PIPJ right fourth toe. Estimated blood loss: 2 mL Specimen(s) removed: None Post-operative diagnosis: Right fourth toe hardware pain and hammertoe right fourth toe.
--- NOTE | 2025-01-16 12:58 | P.OP_ITS ---
Operative Report Date of procedure: January 16, 2025 Pre-op diagnosis: Right hammertoe M20.41 Painful hardware T84.84 XA Post-op diagnosis: Right hammertoe M20.41 Painful hardware T84.84 XA Procedure done: 1) Hardware removal right foot. CPT code 26289 2) right fourth hammertoe correction. CPT code 66031 Implants: 0.062 K wire and Terrence ball for 0 Vicryl and 4-0 nylon. Surgeon: Ganga Zhou DPM Candy Separator Enrobing: Lizz Estimated blood loss: 2 10 Complications: None Brief History: X-ray right foot AP oblique and lateral views taken 01/09/2025 shows that the right fourth toe interphalange joint arthrodesis site is not seated at the distal implant has migration and deformity correlates clinically to pain and swelling. Requires explantation and planning on K wire fixation. I reviewed at length with the patient, the risks, potential complications, benefits, alternatives, expectations, and typical outcomes associated with the surgery. The risks and potential complications were explained in detail, including but not limited to infection, wound dehiscence or soft tissue complications, bleeding and hematoma, chronic edema, neuritis or nerve damage producing numbness or chronic pain, CRPS, failure to relieve pain or worsening pain, thick / painful / unsightly scar, limited motion / stiffness, malposition, delayed union, malunion, or nonunion, fracture, reaction to implants, anesthetic complications, venous thromboembolism, and deformity recurrence. I discussed the notion of no regrets with the patient as it pertains to complications and outcomes. The patient seemed to understand the nature of the proposed care and required convalescence. They asked appropriate questions, answered to their satisfaction. They are aware no guarantees can be made as to a satisfactory outcome and they understand there may be other possible unforeseen complications or outcomes not listed here that will be treated accordingly if they arise. There were no written or implied guarantees given to the patient. They gave informed consent to proceed. Patient is in agreement and wishes to proceed will be scheduled for January for outpatient surgery. Procedure: Very mild sedation the patient was brought to the operating room and remained on the gurney in supine position. A timeout was performed. Anesthesia was then administered by the anesthesia service. Local anesthesia was injected by myself consisting of 10 cc of 0.5% Marcaine plain in a right fourth ray block fashion with an additional 20 cc of Exparel infiltrated subcutaneously in a grid like fashion proximal to the operative site of the right foot. Well-padded pneumatic tourniquet applied to the right ankle. The right lower extremity was scrubbed, prepped and draped utilizing normal aseptic technique. Right foot and ankle were exanguinated with an Esmarch bandage and tourniquet inflated to 250 mmHg. Attention was directed the dorsal aspect of the right fourth toe where a linear incision was performed directly over previous cicatrix through skin with a 15 blade with dissection carried bluntly down to extensor tendon which was transversely incised, dissection down to the implant intramedullary placement within the proximal phalanx head which was explanted without failure or fragmentation this was passed from operative field, the incision was irrigated with saline solution, arthrodesis site of the proximal phalange joint was freshened to healthy bleeding bone with a rongeur and all rough edges smoothed. Right fourth toe was held rectus and a 0.062 K wire was utilized from distal to proximal within the right fourth toe to stabilize the arthrodesis site and maintain rectus alignment the K wire was noted to be of appropriate length not crossing the metatarsal phalangeal joint, the excess wire was trimmed and covered with a Terrence ball. The incision was irrigated with saline solution, extensor tendon approximated with 4-0 Vicryl, subcutaneous tissue approximated 4-0 Vicryl and skin with 4-0 nylon. The incision was dressed with Adaptic, sterile 4 x 4 gauze, Kerlix and Alexander wrap followed by application of a cam boot. Tourniquet was then deflated and a prompt hyperemic response is noted to the distal digits of the right foot. Patient tolerated the procedure and anesthesia well and was transferred to the PACU with vital signs stable and vascular status intact. Following a period of postoperative monitoring she will be discharged home without home care instructions and scheduled follow-up.
[2025-01-16 13:01] VITALS: BP 162/70; PULSE 69; RESP 18; O2SAT 93
[2025-01-16 13:06] VITALS: BP 153/71; PULSE 63; RESP 18; TEMP 36.6; O2SAT 94
[2025-01-16 13:26] VITALS: BP 155/82; PULSE 68; RESP 16; TEMP 36.6; O2SAT 95
[2025-01-16 13:44] VITALS: BP 158/75; PULSE 68; RESP 16; O2SAT 96
--- NOTE | 2025-01-16 14:20 | ANE.PACU2 ---
Inpatient post-anesthesia follow up: Airway intact: Yes Vital signs: Temperature 97.9 F Pulse Rate 68 Respiratory Rate 16 Blood Pressure 158/75 Pulse Oximetry 96 Oxygen Delivery Me thod Room Air Oxygen Flow Rate Fraction of Inspir ed Oxygen Hydration adequate: Yes Nausea and vomiting: No Pain level: 1 Mental status: Baseline
--- NOTE | 2025-01-16 16:27 | XR_ITS ---
WS: [id number] XR foot RT 2V [id number] REASON FOR EXAM: IVONE IMAGES FINDINGS: Previous plate and screw arthrodesis of the second TMT joint Previous osteotomy distal second metatarsal with screw fixation. Surgical appliance arthrodesis of the PIP joints of the second and third toes. Currently long pin fixation of the phalanges of the fourth toe. Previous surgical appliance arthrodesis of the fourth toe. All surgical appliances are intact and in proper position and alignment. XR/XR foot RT 2V [id number] IMPRESSION: Revising arthrodesis of the distal fourth toe as above.
== END 2025-01-16 14:20 | disposition home or self-care (01) ==
PROVIDERS: PCP Registered Nurse; Visit Provider Podiatrist Foot & Ankle Surgery
PROC: (CPT 28285; principal; 2025-01-16 12:00)
PROC: (CPT 28285; 2025-01-16 12:00)
DX: T84.84XA Pain due to internal orthopedic prosthetic devices, implants and grafts, initial encounter (principal); Y70.2 Prosthetic and other implants, materials and accessory anesthesiology devices associated with adverse incidents; M20.41 Other hammer toe(s) (acquired), right foot; I10 Essential (primary) hypertension
CPT/HCPCS: 28285; 20680; 73620; 76000; C1713; J0666; J0690; J2704; J3010; J3490; J7030; J9999

== ENCOUNTER → 2025-01-29 13:04 | Outpatient (BNVA) | payer MEDICARE, SELFPAY | PROVIDERS: PCP Registered Nurse; Visit Provider Podiatrist Foot & Ankle Surgery | DX: M20.41 Other hammer toe(s) (acquired), right foot (principal); Z98.890 Other specified postprocedural states; M20.42 Other hammer toe(s) (acquired), left foot; T84.84XA Pain due to internal orthopedic prosthetic devices, implants and grafts, initial encounter; Y79.2 Prosthetic and other implants, materials and accessory orthopedic devices associated with adverse incidents | CPT/HCPCS: 73630; 99024 ==

== ENCOUNTER → 2025-02-03 13:42 | Outpatient (BNVA) | payer MEDICARE, SELFPAY | PROVIDERS: PCP Registered Nurse; Visit Provider Podiatrist Foot & Ankle Surgery | DX: Z98.890 Other specified postprocedural states (principal); M20.42 Other hammer toe(s) (acquired), left foot; T84.84XA Pain due to internal orthopedic prosthetic devices, implants and grafts, initial encounter; Y79.2 Prosthetic and other implants, materials and accessory orthopedic devices associated with adverse incidents | CPT/HCPCS: 99024 ==

== ENCOUNTER → 2025-02-13 14:06 | Outpatient (BNVA) | payer MEDICARE, SELFPAY | PROVIDERS: PCP Registered Nurse; Visit Provider Podiatrist Foot & Ankle Surgery | DX: Z98.890 Other specified postprocedural states (principal); M20.42 Other hammer toe(s) (acquired), left foot; T84.84XA Pain due to internal orthopedic prosthetic devices, implants and grafts, initial encounter; Y79.2 Prosthetic and other implants, materials and accessory orthopedic devices associated with adverse incidents | CPT/HCPCS: 73630; 99024 ==

== ENCOUNTER → 2025-02-27 12:48 | Outpatient (BNVA) | payer MEDICARE, SELFPAY | PROVIDERS: PCP Registered Nurse; Visit Provider Podiatrist Foot & Ankle Surgery | DX: Z98.890 Other specified postprocedural states (principal); M20.42 Other hammer toe(s) (acquired), left foot; T84.84XA Pain due to internal orthopedic prosthetic devices, implants and grafts, initial encounter; Y79.2 Prosthetic and other implants, materials and accessory orthopedic devices associated with adverse incidents | CPT/HCPCS: 73630; 99024 ==

== ENCOUNTER → 2025-04-15 08:57 | Outpatient (BNVA) | payer MEDICARE, SELFPAY | PROVIDERS: PCP Registered Nurse; Visit Provider Podiatrist Foot & Ankle Surgery | DX: M20.41 Other hammer toe(s) (acquired), right foot (principal); Z98.890 Other specified postprocedural states; T84.84XA Pain due to internal orthopedic prosthetic devices, implants and grafts, initial encounter; Y79.2 Prosthetic and other implants, materials and accessory orthopedic devices associated with adverse incidents | CPT/HCPCS: 73630; 99213 ==